=== PATIENT | female | born 1945 | race Caucasian/White ===

== ENCOUNTER 2023-02-12 12:40 | Outpatient (RCR) | payer MEDICARE, OTHER, SELFPAY | END 2023-04-17 16:00 | disposition home or self-care (01) | LOC: HO.WCC 12:40 | PROVIDERS: PCP Student in an Organized Health Care Education/Training Program; Visit Provider Physician Assistant | DX: Z09 Encounter for follow-up examination after completed treatment for conditions other than malignant neoplasm (principal); I89.0 Lymphedema, not elsewhere classified; I87.2 Venous insufficiency (chronic) (peripheral); Z79.899 Other long term (current) drug therapy; Z87.2 Personal history of diseases of the skin and subcutaneous tissue | CPT/HCPCS: 11042; 99212 ==

== ENCOUNTER 2025-02-22 13:31 | Outpatient (AMB) | payer MEDICARE, OTHER, SELFPAY ==
--- NOTE | 2025-02-22 13:37 | A.OFFVIS_ITS ---
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 Consequently, her left femur was fused to the pelvis, contributing to ongoing pain. Despite surgical efforts, no successful hardware reintegration ensued. Her pain is reported to be constant and debilitating at a 10/10 intensity, negatively influencing daily activities, sleep, mood, quality of life and causing substantial apprehension about falls. She has significant leg length discrepancy since hip surgery and cannot get upstairs. Patient receives home health aide service twice daily for care. Patient completed OT and PT therapy through [facility] with minimal improvement. The patient's medical history includes osteonecrosis, osteoporosis, recurrent endometrial cancer, breast cancer, congestive heart failure, and lymphedema of left lower extremity. Functional limitations primarily reside in her ability to ambulate efficiently, necessitating a walker for assistance. The patient utilizes tramadol for pain management but reports diminished efficacy over time, raising concerns about tolerance. Previous cancer treatments and her extensive medical history further compound the complexity of her presenting complaint. - Chronic pain located in the left buttock and side of the left hip. - Described as sore, aching, heavy, sharp, shooting, throbbing, tiring, fearful, heavy. - Severity is constant at 10/10. - Pain onset related to post-surgical changes following total hip arthroplasty with fusion to the pelvis. - Primarily impacts mobility and daily function, engendering fear of falling. - Aggravated by movement and improves slightly with tramadol and Tylenol, though effectiveness has reduced over time. - Non-radiating, occasionally extending to the groin. - Affect: Pain induces fear, particularly regarding falls, and impacts mobility. - Analgesia: Current use of tramadol 50 mg daily, Tylenol, and diclofenac. Pain level remains at 10/10; desired rotation to manageable levels. - Adverse Effects: Tramadol is reported not to cause drowsiness or constipation. - Activities of Daily Living: Pain confining; affects mobility requiring walker assistance and prevents outdoor activities. - Aberrant Drug-Related Behaviors: Potential tolerance to tramadol; notable when she escalated to twice daily intake without medical approval. [facility] Medical History (Updated 02/22/25 @ 21:59 by KATHY Webb) History of endometrial biopsy Hx of bone density study History of mammogram Muscle weakness of upper extremity (~12/2024) Deep venous thrombosis of both lower extremities (~2022) Risk for falls Polyp of colon Neoplasm of breast Aseptic necrosis of bone of hip Osteoporosis (~2012) Lymphedema of lower extremity Hypothyroidism Malignant neoplasm of endometrium of corpus uteri Neoplasm of body of uterus Malignant tumor of breast Surgical History (Updated 02/22/25 @ 21:59 by KATHY Webb) S/P Girdlestone procedure (~02/2023) H/O: hysterectomy History of revision of total replacement of left hip joint (~2022) Hx of colonoscopy History of cancer surgery History of right mastectomy History of operative procedure on hip History of total hip arthroplasty Review of Systems Const Details: - Musculoskeletal: Reports chronic pain in the left hip. - Neurological: Reports no tremor or neurological deficits. - Cardiovascular: Denies heart conditions during anesthetic procedures in the past. - Gastrointestinal: Denies constipation, managed occasional issues with Senokot. - Urinary: Denies incontinence except as a precautionary measure due to reduced mobility. All systems reviewed & are unremarkable except as noted in HPI and below Physical Exam Vital Signs: Last Vital Signs Pulse 80 02/22/25 13:38 BP 110/52 L 02/22/25 13:38 Pulse Ox 97 02/22/25 13:38 Oxygen Delivery Method Room Air 02/22/25 13:38 BMI result Body Mass Index 21.5 General: Appears afebrile. Moderate distress due to pain. Alert and oriented. Mood and affect appropriate. Follows and participates in conversation appropriately. Respiratory effort is unlabored. No cough. Able to transition from sit to stand with assistance. Ambulates with slow, antalgic gait with limping, with the use of walker. Back/Spine/Pelvis Other: Limited lumbar ROM due to pain. Mild TTP to left GTB. Minimal localized tenderness to left SI joint area. Significant tenderness to left lateral hip which extends to left buttock. Well healed scars left hip. Notable leg discrepancy, left shorter than right. Unable to proceed with exam due to significant pain. Cervical Spine: cervical ROM normal, cervical muscular tenderness and No Cervical spine tenderness Thoracic/Lumbar Spine: thoracic and lumbar spine normal to inspection, Lasegue's sign negative, straight leg raise negative bilaterally, thoraco-lumbar ROM limited, No thoracic spinal tenderness and No lumbar spinal tenderness Sacroiliac joints: on the right nontender and on the left tender to palpation Extrem General: Yes no calf tenderness, No clubbing, No cyanosis and Yes pedal edema (nonpitting LLE) Left lower extremity: hip/thigh Details: normal to inspection and tenderness Location: of the hip Location: laterally and posterolaterally; no ecchymosis and no unusual warmth Results Reviewed Results Reviewed: Assessment & Plan Assessment & Plan (1) Chronic pain syndrome: Code(s): G89.4 - Chronic pain syndrome Category: Medical (2) Aseptic necrosis of bone of hip: Code(s): M87.059 - Idiopathic aseptic necrosis of unspecified femur Category: Medical (3) S/P Girdlestone procedure: Onset Date: ~02/2023 Code(s): Z98.890 - Other specified postprocedural states Category: Surgical (4) History of revision of total replacement of left hip joint: Onset Date: ~2022 Code(s): Z96.642 - Presence of left artificial hip joint Category: Surgical Plan Conclusive evaluation and discussion of treatment options highlighted the necessity to adjust the patient's tramadol dosage to twice daily as needed to address chronic pain, alongside integrating Tylenol and diclofenac. Patient reports short acting opioid like tramadol has not been adequate for pain relief. We discussed considering with her PCP to add long-acting opioid such as Belbuca film or Butrans patch for extended relief and are conditional upon electrocardiograph screenings for prolonged QT interval. Should these pharmacologic amendments present inadequate, consideration towards interventional pain management options such as PNS and SCS neurostimulators or intrathecal pumps could follow. Information pamphlets were provided to patient and family today. Patient is hesitant towards injections and ITDD pump, but will look into Curonix PNS trial and implant. Patient is aware initial steps for PNS system would involve to undergo psychological clearance. A coordinated follow-up with her primary care physician will sustain continuity, and she should reconsult if relief remains elusive, facilitating interventional care co-management where indicated. All questions and concerns have been answered and patient agreed with the plan. Follow up as needed. Patient was informed and verbally consented to the use of an ambient scribe for clinic note documentation during this visit. Medications: New 2 naloxone 4 mg/actuation (Narcan) spray 1 dose into ONE nostril; alternate nostrils w each dose until help arrives 4 mg intranasal Q2M PRN 2 ea 0RF opioid overdose G89.4 - Chronic pain syndrome Coding Level of Care Code New Pt Level 4 (80742) Diagnoses Chronic pain syndrome G89.4 Aseptic necrosis of bone of hip M87.059 S/P Girdlestone procedure Z98.890 History of revision of total replacement of left hip joint Z96.642
[2025-02-22 13:38] VITALS: BP 110/52; PULSE 80; O2SAT 97; BMI 21.5
--- OUTSIDE RECORDS SUMMARY | 2025-02-22 15:18 | XMS_ITS | Data Portability ---
Author Organization [facility], Main Office Address [address] [place] [address] Care Team Providers Care Butt Sawyer Name Role Phone NASIM HUDSON Referring Provider FUNMILAYO JOHNSON Surgery Specialist BRIANNA CLAY Medical Oncologist [phone] SELMA GARZA Store Shopper ASHLYN ALAMO Orthopedic Surgeon [phone] MARCO DRIVER Sports Medicine BING ZARAGOZA Orthopedic Surgeon NEIL GUAJARDO Orthopedic Surgeon DENISE BERRIOS Orthopedic Surgeon [phone] TOYIN PEREZ Referring Provider [phone] KEHINDE FERNÁNDEZ Retirement Administrator [phone] SMITA SU Primary Care Provider JHONNY HUDSON Vascular Surgeon SANDIP VEGA Occupational Therapist Assessment Encounter Date Assessment Date Assessment LastModified by Organization Details LastModified Time 02/11/2024 02/11/2024 This service was provided using telemedicine. Patient consented to video & audio visit Patient was located in the [facility]. Provider was located in the office. No other persons participated in the telemedicine visit except for the patient unless otherwise indicated here. Total time of visit was 14 minutes. [email or web address] Not available 02/11/2024 14:36:08 01/15/2025 01/15/2025 This service was provided using telemedicine. Patient consented to video & audio visit Patient was located at home in the [facility]. Provider was located in the office. No other persons participated in the telemedicine visit except for the patient unless otherwise indicated here. daughter Total time of visit was 20 minutes. Not available 01/15/2025 16:30:43 Plan of Treatment Reminders Order Date Submit Date Provider Last Modified By Organization Details Last Modified Time Details Appointments TELEHEALT H15 2024 09:15A Francoise SU MD Not available Not available Not available AWV30 2024 02:15P Francoise SU MD Not available Not available Not available Lab CBC w/ auto diff 2024 025 [facility] (Centralized Electronic Ordering - All Locations), Patient Can Go To The Location Of Their Choice, 12/16/2024 08:07:37 TIBC (total iron-bind ing capacity) , serum 2024 025 [facility] (Centralized Electronic Ordering - All Locations), Patient Can Go To The Location Of Their Choice, 12/16/2024 08:07:37 TSH + free T4, serum 2024 025 [facility] (Centralized Electronic Ordering - All Locations), Patient Can Go To The Location Of Their Choice, 12/16/2024 08:07:36 TIBC (total iron-bind ing capacity) , serum 2023 024 [facility] (Centralized Electronic Ordering - All Locations), Patient Can Go To The Location Of Their Choice, 08/12/2024 10:06:27 ferritin, serum or plasma 2023 024 [facility] ([facility]ized Electronic Ordering - All Locations), Patient Can Go To The Location Of Their Choice, 08/12/2024 10:06:30 CBC w/ auto diff 2023 024 [facility] (Centralized Electronic Ordering - All Locations), Patient Can Go To The Location Of Their Choice, 08/12/2024 10:06:26 vitamin B12 + folate, serum or blood 2023 024 [facility] (Centralized Electronic Ordering - All Locations), Patient Can Go To The Location Of Their Choice, 08/12/2024 10:06:28 vitamin D, 25-hydrox y, total, serum 2023 024 [facility] (Centralized Electronic Ordering - All Locations), Patient Can Go To The Location Of Their Choice, 08/12/2024 10:06:29 TSH + free T4, serum 2023 024 [facility] (Centralized Electronic Ordering - All Locations), Patient Can Go To The Location Of Their Choice, 08/12/2024 10:06:25 lipid panel, serum 2023 024 [facility], [address], [place], [address], 03/03/2024 08:08:20 BMP, serum or plasma 2023 024 [facility], [address], [place], [address], 03/03/2024 08:08:19 CBC w/ auto diff 2023 024 [facility], [address], [place], [address], 03/03/2024 08:08:18 TIBC (total iron-bind ing capacity) , serum 2023 024 [facility] (Centralized Electronic Ordering - All Locations), Patient Can Go To The Location Of Their Choice, 03/03/2024 08:08:20 ferritin, serum or plasma 2023 024 [facility] (Centralized Electronic Ordering - All Locations), Patient Can Go To The Location Of Their Choice, 03/03/2024 08:08:22 TSH, ultra-sen sitive, serum 2023 024 [facility], [address], [place], [address], 03/03/2024 08:08:21 Referral [facility] referral - for considera tion of home physical therapy, pt is home bound and has trouble getting up from seating position even with walker 2024 025 teri Not available 12/15/2024 14:57:05 home health referral - pt has hx of left sided hip pain, needs assistanc e with dressing and washing. One to two hours daily for 5 days a week. 2023 024 CELSO Not available 01/04/2025 09:00:38 Procedures None recorded. Surgeries None recorded. Imaging None recorded. Medication Orders tramadol 50 mg tablet 2024 025 [facility]acy #[id number], [address] [place] [address], [id number], 01/15/2025 16:36:27 lorazepam 0.5 mg tablet 2024 025 [facility] #[id number], [address] [place] [address], [address], 01/15/2025 16:36:27 tramadol 50 mg tablet 2024 025 [facility] #[id number], [address] [place] [address], [id number], 12/15/2024 14:30:55 ferrous sulfate 325 mg (65 mg iron) tablet 2023 024 [facility]/Pharmacy #0957, [address] [place] [address], [id number], 12/14/2024 07:48:24 cyclobenz aprine 5 mg tablet 2023 024 [email or web address] [facility] #0957, [address] [place] [address], [address], 01/29/2025 15:17:52 Patient TargetsNo targets recorded. Patient Instructions Encounter Date Encounter Id Patient Instructions Last Modified By Organization Details Last Modified Time 02/11/2024 [id number] At [facility] follow up visit, all current and discharge medications (OTC, herbal therapies, supplements) reviewed and reconciled with patient and or caregiver, including potential side effects, drug interactions, instructions, and the consequences of not taking medication. Reviewed potential barriers to medication adherence, such as side effects from medication or cost of medication. [email or web address] Not available 02/11/2024 13:28:21 03/02/2024 [id number] advance care planning: care instructions Not available 03/02/2024 10:48:26 osteoporosis: care instructions Not available 03/02/2024 10:48:27 well visit, over 65: care instructions Not available 03/02/2024 10:48:26 preventing falls: care instructions Not available 03/02/2024 10:48:27 hypothyroidism: care instructions Not available 03/02/2024 10:48:26 08/11/2024 [id number] osteoporosis: care instructions Not available 08/11/2024 11:48:14 hypothyroidism: care instructions Not available 08/11/2024 11:48:14 12/15/2024 [id number] hypothyroidism: care instructions Not available 12/15/2024 14:30:53 01/15/2025 [id number] grief (actual/anticipa ko): care instructions Not available 01/15/2025 16:36:24 Reason for Referral Home Health Referral for Gabe n of left hip joint pt has hx of left sided hip pain, needs assistance with dressing and washing. One to two hours daily for 5 days a week. Referring Physician: Smita Su Family Medicine, Encounter Date: 08/11/2024 Half-Way Referral for At increased risk for falls for consideration of home physical therapy, pt is home bound and has trouble getting up from seating position even with walker Referring Physician: Smita Su Family [facility], Encounter Date: 12/15/2024 Results Created Date Observation Date Name Description Value Unit Range Abnormal Flag Note LastModifiedBy Organization Detail LastModifiedTime 03/02/20 24 03/02/2024 CBC WITH DIFFE RENTI AL/PL ATELE T WBC 9.2 x10e3 /uL 3.4-10 .8 Not Available [facility] ([facility]) [address], [place], [address], 03/03/2024 08:08:18 03/02/20 24 03/02/2024 CBC WITH DIFFE RENTI AL/PL ATELE T RBC 3.78 x10e6 /uL 3.77-5 .28 Not Available [facility] ([facility]) [address], [place], [address], 03/03/2024 08:08:18 03/02/20 24 03/02/2024 CBC WITH DIFFE RENTI AL/PL ATELE T hemoglobin 11.4 g/dL 11.1-1 5.9 Not Available [facility] ([facility]) [address], [place], [address], 03/03/2024 08:08:18 03/02/20 24 03/02/2024 CBC WITH DIFFE RENTI AL/PL ATELE T hematocrit 36.2 % 34.0-4 6.6 Not Available [facility] ([facility]) [address] [place], [address], 03/03/2024 08:08:18 03/02/20 24 03/02/2024 CBC WITH DIFFE RENTI AL/PL ATELE T MCV 96 fL 79-97 Not Available [facility] ([facility]) [address] [place], [address], 03/03/2024 08:08:18 03/02/20 24 03/02/2024 CBC WITH DIFFE RENTI AL/PL ATELE T MCH 30.2 pg 26.6-3 3.0 Not Available [facility] ([facility]) [address] [place], [address], 03/03/2024 08:08:18 03/02/20 24 03/02/2024 CBC WITH DIFFE RENTI AL/PL ATELE T MCHC 31.5 g/dL 31.5-3 5.7 Not Available [facility] ([facility]) [address], [place], [address], 03/03/2024 08:08:18 03/02/20 24 03/02/2024 CBC WITH DIFFE RENTI AL/PL ATELE T RDW 12.8 % 11.7-1 5.4 Not Available [facility] ([facility]) [address], [place], [address], 03/03/2024 08:08:18 03/02/20 24 03/02/2024 CBC WITH DIFFE RENTI AL/PL ATELE T platelets 422 x10e3 /uL 150-45 0 Not Available [facility] ([facility]) [address], [place], [address], 03/03/2024 08:08:18 03/02/20 24 03/02/2024 CBC WITH DIFFE RENTI AL/PL ATELE T neutrophils 80 % not estab. Not Available [facility] ([facility]) [address], [place], [address], 03/03/2024 08:08:18 03/02/20 24 03/02/2024 CBC WITH DIFFE RENTI AL/PL ATELE T lymphs 10 % not estab. Not Available [facility] ([facility]) [address], [place], [address], 03/03/2024 08:08:18 03/02/20 24 03/02/2024 CBC WITH DIFFE RENTI AL/PL ATELE T monocytes 8 % not estab. Not Available [facility] ([facility]) [address], [place], [address], 03/03/2024 08:08:18 03/02/20 24 03/02/2024 CBC WITH DIFFE RENTI AL/PL ATELE T eos 1 % not estab. Not Available [facility] ([facility]) [address] [place], [address], 03/03/2024 08:08:18 03/02/20 24 03/02/2024 CBC WITH DIFFE RENTI AL/PL ATELE T basos 0 % not estab. Not Available [facility] ([facility]) [address], [place], [address], 03/03/2024 08:08:18 03/02/20 24 03/02/2024 CBC WITH DIFFE RENTI AL/PL ATELE T immature cells WHITING MACHINE OPERATOR Not Available [facility] ([facility]) [address] [place], [address], 03/03/2024 08:08:18 03/02/20 24 03/02/2024 CBC WITH DIFFE RENTI AL/PL ATELE T neutrophils (absolute) 7.4 x10e3 /uL 1.4-7. 0 above high normal Not Available [facility] ([facility]) [address] [place], [address], 03/03/2024 08:08:18 03/02/20 24 03/02/2024 CBC WITH DIFFE RENTI AL/PL ATELE T lymphs (absolute) 0.9 x10e3 /uL 0.7-3. 1 Not Available [facility] ([facility]) [address] [place], [address], 03/03/2024 08:08:18 03/02/20 24 03/02/2024 CBC WITH DIFFE RENTI AL/PL ATELE T monocytes(ab solute) 0.7 x10e3 /uL 0.1-0. 9 Not Available [facility] ([facility]) [address] [place], [address], 03/03/2024 08:08:18 03/02/20 24 03/02/2024 CBC WITH DIFFE RENTI AL/PL ATELE T eos (absolute) 0.1 x10e3 /uL 0.0-0. 4 Not Available [facility] ([facility]) [address], [place], [address], 03/03/2024 08:08:18 03/02/20 24 03/02/2024 CBC WITH DIFFE RENTI AL/PL ATELE T baso (absolute) 0.0 x10e3 /uL 0.0-0. 2 Not Available [facility] ([facility]) [address], [place], [address], 03/03/2024 08:08:18 03/02/20 24 03/02/2024 CBC WITH DIFFE RENTI AL/PL ATELE T immature granulocytes 1 % not estab. Not Available [facility] ([facility]) [address], [place], [address], 03/03/2024 08:08:18 03/02/20 24 03/02/2024 CBC WITH DIFFE RENTI AL/PL ATELE T immature grans (abs) 0.1 x10e3 /uL 0.0-0. 1 Not Available [facility] ([facility]) [address], [place], [address], 03/03/2024 08:08:18 03/02/20 24 03/02/2024 CBC WITH DIFFE RENTI AL/PL ATELE T NRBC WHITING MACHINE OPERATOR Not Available [facility] ([facility]) [address] [place], [address], 03/03/2024 08:08:18 03/02/20 24 03/02/2024 CBC WITH DIFFE RENTI AL/PL ATELE T hematology comments: WHITING MACHINE OPERATOR Not Available [facility] ([facility]) [address], [place], [address], 03/03/2024 08:08:18 03/02/20 24 03/02/2024 BASIC METAB OLIC PANEL (8) glucose 95 mg/dL 70-99 Not Available [facility] ([facility]) [address] [place], [address], 03/03/2024 08:08:19 03/02/20 24 03/02/2024 BASIC METAB OLIC PANEL (8) BUN 18 mg/dL 8-27 Not Available [facility] ([facility]) [address], [address], 03/03/2024 08:08:19 03/02/20 24 03/02/2024 BASIC METAB OLIC PANEL (8) creatinine 0.72 mg/dL 0.57-1 .00 Not Available [facility] ([facility]) [address] [place], [address], 03/03/2024 08:08:19 03/02/20 24 03/02/2024 BASIC METAB OLIC PANEL (8) eGFR 86 mL/mi n/1.7 3 >59 Not Available [facility] ([facility]) [address] [place], [address], 03/03/2024 08:08:19 03/02/20 24 03/02/2024 BASIC METAB OLIC PANEL (8) BUN/creatini ne ratio 25 12-28 Not Available [facility] ([facility]) [address] [place], [address], 03/03/2024 08:08:19 03/02/20 24 03/02/2024 BASIC METAB OLIC PANEL (8) sodium 138 mmol/ L 134-14 4 Not Available [facility] ([facility]) [address] [place], [address], 03/03/2024 08:08:19 03/02/20 24 03/02/2024 BASIC METAB OLIC PANEL (8) potassium 5.0 mmol/ L 3.5-5. 2 Not Available [facility] ([facility]) [address] [place], [address], 03/03/2024 08:08:19 03/02/20 24 03/02/2024 BASIC METAB OLIC PANEL (8) chloride 99 mmol/ L 96-106 Not Available [facility] ([facility]) [address] [place], [address], 03/03/2024 08:08:19 03/02/20 24 03/02/2024 BASIC METAB OLIC PANEL (8) carbon dioxide, total 25 mmol/ L 20-29 Not Available [facility] ([facility]) [address] [place], [address], 03/03/2024 08:08:19 03/02/20 24 03/02/2024 BASIC METAB OLIC PANEL (8) calcium 9.8 mg/dL 8.7-10 .3 Not Available [facility] ([facility]) [address] [place], [address], 03/03/2024 08:08:19 03/02/20 24 03/02/2024 LIPID PANEL cholesterol, total 133 mg/dL 100-19 9 Not Available [facility] ([facility]) [address] [place], [address], 03/03/2024 08:08:20 03/02/20 24 03/02/2024 LIPID PANEL triglyceride s 73 mg/dL 0-149 Not Available [facility] ([facility]) [address] [place], [address], 03/03/2024 08:08:20 03/02/20 24 03/02/2024 LIPID PANEL HDL cholesterol 44 mg/dL >39 Not Available [facility] ([facility]) [address] [place], [address], 03/03/2024 08:08:20 03/02/20 24 03/02/2024 LIPID PANEL VLDL cholesterol rayshawn 15 mg/dL 5-40 Not Available [facility] ([facility]) [address] [place], [address], 03/03/2024 08:08:20 03/02/20 24 03/02/2024 LIPID PANEL LDL chol calc ([facility]) 74 mg/dL 0-99 Not Available [facility] ([facility]) [address] [place], [address], 03/03/2024 08:08:20 03/02/20 24 03/02/2024 LIPID PANEL LDL calc comment: WHITING MACHINE OPERATOR Not Available [facility] ([facility]) [address] [place], [address], 03/03/2024 08:08:20 03/02/20 24 03/03/2024 IRON AND TIBC iron bind.cap.(TI BC) 269 ug/dL 250-45 0 Not Available [facility] ([facility]) [address] [place], [address], 03/03/2024 08:08:20 03/02/20 24 03/03/2024 IRON AND TIBC UIBC 207 ug/dL 118-36 9 Not Available [facility] ([facility]) [address] [place], [address], 03/03/2024 08:08:20 03/02/20 24 03/03/2024 IRON AND TIBC iron 62 ug/dL 27-139 Not Available [facility] ([facility]) [address] [place], [address], 03/03/2024 08:08:20 03/02/20 24 03/03/2024 IRON AND TIBC iron saturation 23 % 15-55 Not Available [facility] ([facility]) [address] [place], [address], 03/03/2024 08:08:20 03/02/20 24 03/03/2024 TSH RFX ON ABNOR MAL TO FREE T4 TSH 8.090 uIU/m L 0.450- 4.500 above high normal Not Available [facility] ([facility]) [address] [place], [address], 03/03/2024 08:08:21 03/02/20 24 03/03/2024 TSH RFX ON ABNOR MAL TO FREE T4 T4,free (direct) 1.34 NG/dL 0.82-1 .77 Not Available [facility] ([facility]) [address] [place], [address], 03/03/2024 08:08:21 03/02/20 24 03/03/2024 MAMIE TIN ferritin 155 NG/mL 15-150 above high normal Not Available [facility] ([facility]) [address] [place], [address], 03/03/2024 08:08:21 08/11/20 24 08/12/2024 TSH+F REE T4 TSH 0.236 uIU/m L 0.450- 4.500 below low normal Not Available [facility] ([facility]) [address] [place], [address], 08/12/2024 10:06:25 08/11/20 24 08/12/2024 TSH+F REE T4 T4,free(dire ct) 2.09 NG/dL 0.82-1 .77 above high normal Not Available [facility] ([facility]) [address] [place], [address], 08/12/2024 10:06:25 08/11/20 24 08/11/2024 CBC WITH DIFFE RENTI AL/PL ATELE T WBC 7.9 x10e3 /uL 3.4-10 .8 normal Eff ectiv e Decem latisha 2023 [place] [id number] 5 WBC will be made* * non-o rdera ble as a stand -jerod e order code. Not Available [facility] ([facility]) [address] [place], [address], 08/12/2024 10:06:26 08/11/20 24 08/11/2024 CBC WITH DIFFE RENTI AL/PL ATELE T RBC 4.25 x10e6 /uL 3.77-5 .28 normal Not Available [facility] ([facility]) [address], [place], [address], 08/12/2024 10:06:26 08/11/20 24 08/11/2024 CBC WITH DIFFE RENTI AL/PL ATELE T hemoglobin 12.8 g/dL 11.1-1 5.9 normal Not Available [facility] ([facility]) [address], [place], [address], 08/12/2024 10:06:26 08/11/20 24 08/11/2024 CBC WITH DIFFE RENTI AL/PL ATELE T hematocrit 39.2 % 34.0-4 6.6 normal Not Available [facility] ([facility]) [address], [place], [address], 08/12/2024 10:06:26 08/11/20 24 08/11/2024 CBC WITH DIFFE RENTI AL/PL ATELE T MCV 92 fL 79-97 normal Not Available [facility] ([facility]) [address] [place], [address], 08/12/2024 10:06:26 08/11/20 24 08/11/2024 CBC WITH DIFFE RENTI AL/PL ATELE T MCH 30.1 pg 26.6-3 3.0 normal Not Available [facility] ([facility]) [address] [place], [address], 08/12/2024 10:06:26 08/11/20 24 08/11/2024 CBC WITH DIFFE RENTI AL/PL ATELE T MCHC 32.7 g/dL 31.5-3 5.7 normal Not Available [facility] ([facility]) [address] [place], [address], 08/12/2024 10:06:26 08/11/20 24 08/11/2024 CBC WITH DIFFE RENTI AL/PL ATELE T RDW 13.3 % 11.7-1 5.4 Not Available [facility] ([facility]) [address], [place], [address], 08/12/2024 10:06:26 08/11/20 24 08/11/2024 CBC WITH DIFFE RENTI AL/PL ATELE T platelets 413 x10e3 /uL 150-45 0 normal Not Available [facility] ([facility]) [address], [place], [address], 08/12/2024 10:06:26 08/11/20 24 08/11/2024 CBC WITH DIFFE RENTI AL/PL ATELE T neutrophils 70 % not estab. normal Not Available [facility] ([facility]) [address], [place], [address], 08/12/2024 10:06:26 08/11/20 24 08/11/2024 CBC WITH DIFFE RENTI AL/PL ATELE T lymphs 17 % not estab. normal Not Available [facility] ([facility]) [address], [place], [address], 08/12/2024 10:06:26 08/11/20 24 08/11/2024 CBC WITH DIFFE RENTI AL/PL ATELE T monocytes 9 % not estab. normal Not Available [facility] ([facility]) [address], [place], [address], 08/12/2024 10:06:26 08/11/20 24 08/11/2024 CBC WITH DIFFE RENTI AL/PL ATELE T eos 3 % not estab. normal Not Available [facility] ([facility]) [address] [place], [address], 08/12/2024 10:06:26 08/11/20 24 08/11/2024 CBC WITH DIFFE RENTI AL/PL ATELE T basos 1 % not estab. normal Not Available [facility] ([facility]) [address] [place], [address], 08/12/2024 10:06:26 08/11/20 24 08/11/2024 CBC WITH DIFFE RENTI AL/PL ATELE T immature cells WHITING MACHINE OPERATOR Not Available [facility] ([facility]) [address] [place], [address], 08/12/2024 10:06:26 08/11/20 24 08/11/2024 CBC WITH DIFFE RENTI AL/PL ATELE T neutrophils (absolute) 5.5 x10e3 /uL 1.4-7. 0 normal Not Available [facility] ([facility]) [address] [place], [address], 08/12/2024 10:06:26 08/11/20 24 08/11/2024 CBC WITH DIFFE RENTI AL/PL ATELE T lymphs (absolute) 1.4 x10e3 /uL 0.7-3. 1 normal Not Available [facility] ([facility]) [address] [place], [address], 08/12/2024 10:06:26 08/11/20 24 08/11/2024 CBC WITH DIFFE RENTI AL/PL ATELE T monocytes(ab solute) 0.7 x10e3 /uL 0.1-0. 9 normal Not Available [facility] ([facility]) [address] [place], [address], 08/12/2024 10:06:26 08/11/20 24 08/11/2024 CBC WITH DIFFE RENTI AL/PL ATELE T eos (absolute) 0.3 x10e3 /uL 0.0-0. 4 normal Not Available [facility] ([facility]) [address] [place], [address], 08/12/2024 10:06:26 08/11/20 24 08/11/2024 CBC WITH DIFFE RENTI AL/PL ATELE T baso (absolute) 0.1 x10e3 /uL 0.0-0. 2 normal Not Available [facility] ([facility]) [address], [place], [address], 08/12/2024 10:06:26 08/11/20 24 08/11/2024 CBC WITH DIFFE RENTI AL/PL ATELE T immature granulocytes 0 % not estab. Not Available [facility] ([facility]) [address], [place], [address], 08/12/2024 10:06:26 08/11/20 24 08/11/2024 CBC WITH DIFFE RENTI AL/PL ATELE T immature grans (abs) 0.0 x10e3 /uL 0.0-0. 1 Not Available [facility] ([facility]) [address], [place], [address], 08/12/2024 10:06:26 08/11/20 24 08/11/2024 CBC WITH DIFFE RENTI AL/PL ATELE T NRBC WHITING MACHINE OPERATOR Not Available [facility] ([facility]) [address], [place], [address], 08/12/2024 10:06:26 08/11/20 24 08/11/2024 CBC WITH DIFFE RENTI AL/PL ATELE T hematology comments: WHITING MACHINE OPERATOR Not Available [facility] ([facility]) [address] [place], [address], 08/12/2024 10:06:26 08/11/20 24 08/12/2024 IRON AND TIBC iron bind.cap.(TI BC) 264 ug/dL 250-45 0 normal Not Available [facility] ([facility]) [address] [place], [address], 08/12/2024 10:06:27 08/11/20 24 08/12/2024 IRON AND TIBC UIBC 139 ug/dL 118-36 9 normal Not Available [facility] ([facility]) [address] [place], [address], 08/12/2024 10:06:27 08/11/20 24 08/12/2024 IRON AND TIBC iron 125 ug/dL 27-139 normal Not Available [facility] ([facility]) [address] [facility] [address], [place], [address], 08/12/2024 10:06:27 08/11/20 24 08/12/2024 IRON AND TIBC iron saturation 47 % 15-55 normal Not Available [facility] ([facility]) [address] [facility] [address], [place], [address], 08/12/2024 10:06:27 08/11/20 24 08/12/2024 VITAM IN B12 AND FOLAT E vitamin B12 268 pg/mL 232-12 45 normal Not Available [facility] ([facility]) [address] [facility], [place], [address], 08/12/2024 10:06:28 08/11/20 24 08/12/2024 VITAM IN B12 AND FOLAT E folate (folic acid), serum 9.2 NG/mL >3.0 normal A serum folat e heidi ntrat ion of less than 3.1 ng/mL is consi dered to repre sent clini rayshawn defic iency . Not Available [facility] ([facility]) [address], [place], [address], 08/12/2024 10:06:28 08/11/20 24 08/12/2024 VITAM IN D, 25-HY DROXY vitamin D, 25-hydroxy 29.5 NG/mL 30.0-1 00.0 below low normal Vitam in D defic iency has been defin ed by the Insti tute of Medic ine and an Endoc rine Socie ty pract ice guide line as a level of serum 25-OH vitam in D less than 20 ng/mL (1,2) . The Endoc rine Socie ty went on to [facility] er defin e vitam in D insuf ficie ncy as a level betwe en 21 and 29 ng/mL (2). 1. IOM (Inst itute of Medic ine). 2010. Dieta ry refer ence jessica es for calci um and D. Charlene love [place]: [facility] . 2. Kam seaman MF, Binjacob kapoor [place], Bisch off-F errar i HYMAN, et al. Evalu ation , treat ment, and preve ntion of vitam in D defic iency : an Endoc rine Socie ty clini rayshawn pract ice guide line. JCEM. 2010; 96(7) :1911 -30. Not Available [facility] ([facility]) [address] [place], [address], 08/12/2024 10:06:29 08/11/20 24 08/12/2024 MAMIE TIN ferritin 187 NG/mL 15-150 above high normal Not Available [facility] ([facility]) [address] [place], [address], 08/12/2024 10:06:30 12/16/19 25 12/16/2024 TSH+F REE T4 TSH 0.944 uIU/m L 0.450- 4.500 normal Not Available [facility] ([facility]) [address] [place], [address], 12/16/2024 08:07:36 12/16/19 25 12/16/2024 TSH+F REE T4 T4,free(dire ct) 1.66 NG/dL 0.82-1 .77 normal Not Available [facility] ([facility]) [address] [place], [address], 12/16/2024 08:07:36 12/16/19 25 12/16/2024 CBC WITH DIFFE RENTI AL/PL ATELE T WBC 11.4 x10e3 /uL 3.4-10 .8 above high normal Not Available [facility] ([facility]) [address] [place], [address], 12/16/2024 08:07:37 12/16/19 25 12/16/2024 CBC WITH DIFFE RENTI AL/PL ATELE T RBC 3.99 x10e6 /uL 3.77-5 .28 normal Not Available [facility] ([facility]) [address] [place], [address], 12/16/2024 08:07:37 12/16/19 25 12/16/2024 CBC WITH DIFFE RENTI AL/PL ATELE T hemoglobin 12.5 g/dL 11.1-1 5.9 normal Not Available [facility] ([facility]) [address] [place], [address], 12/16/2024 08:07:37 12/16/19 25 12/16/2024 CBC WITH DIFFE RENTI AL/PL ATELE T hematocrit 38.0 % 34.0-4 6.6 normal Not Available [facility] ([facility]) [address] [place], [address], 12/16/2024 08:07:37 12/16/19 25 12/16/2024 CBC WITH DIFFE RENTI AL/PL ATELE T MCV 95 fL 79-97 normal Not Available [facility] ([facility]) [address] [place], [address], 12/16/2024 08:07:37 12/16/19 25 12/16/2024 CBC WITH DIFFE RENTI AL/PL ATELE T MCH 31.3 pg 26.6-3 3.0 normal Not Available [facility] ([facility]) [address] [place], [address], 12/16/2024 08:07:37 12/16/19 25 12/16/2024 CBC WITH DIFFE RENTI AL/PL ATELE T MCHC 32.9 g/dL 31.5-3 5.7 normal Not Available [facility] ([facility]) [address] [place], [address], 12/16/2024 08:07:37 12/16/19 25 12/16/2024 CBC WITH DIFFE RENTI AL/PL ATELE T RDW 14.5 % 11.7-1 5.4 Not Available [facility] ([facility]) [address] [facility], [place], [address], 12/16/2024 08:07:37 12/16/19 25 12/16/2024 CBC WITH DIFFE RENTI AL/PL ATELE T platelets 478 x10e3 /uL 150-45 0 above high normal Not Available [facility] ([facility]) [address] [facility], [place], [address], 12/16/2024 08:07:37 12/16/19 25 12/16/2024 CBC WITH DIFFE RENTI AL/PL ATELE T neutrophils 76 % not estab. normal Not Available [facility] ([facility]) [address] [facility], [place], [address], 12/16/2024 08:07:37 12/16/19 25 12/16/2024 CBC WITH DIFFE RENTI AL/PL ATELE T lymphs 14 % not estab. normal Not Available [facility] ([facility]) [address] [facility], [place], [address], 12/16/2024 08:07:37 12/16/19 25 12/16/2024 CBC WITH DIFFE RENTI AL/PL ATELE T monocytes 8 % not estab. normal Not Available [facility] ([facility]) [address] [facility], [place], [address], 12/16/2024 08:07:37 12/16/19 25 12/16/2024 CBC WITH DIFFE RENTI AL/PL ATELE T eos 2 % not estab. normal Not Available [facility] ([facility]) [address] [facility], [place], [address], 12/16/2024 08:07:37 12/16/19 25 12/16/2024 CBC WITH DIFFE RENTI AL/PL ATELE T basos 0 % not estab. 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 0 above high normal Not Available [facility] ([facility]) [address] [place], [address], 12/16/2024 08:07:37 12/16/19 25 12/16/2024 CBC WITH DIFFE RENTI AL/PL ATELE T lymphs (absolute) 1.6 x10e3 /uL 0.7-3. 1 normal Not Available [facility] ([facility]) [address] [place], [address], 12/16/2024 08:07:37 12/16/19 25 12/16/2024 CBC WITH DIFFE RENTI AL/PL ATELE T monocytes(ab solute) 1.0 x10e3 /uL 0.1-0. 9 above high normal Not Available [facility] ([facility]) [address] [place], [address], 12/16/2024 08:07:37 12/16/19 25 12/16/2024 CBC WITH DIFFE RENTI AL/PL ATELE T eos (absolute) 0.2 x10e3 /uL 0.0-0. 4 normal Not Available [facility] ([facility]) [address] [place], [address], 12/16/2024 08:07:37 04/01/20 25 12/16/2024 CBC WITH DIFFE RENTI AL/PL ATELE T baso (absolute) 0.1 x10e3 /uL 0.0-0. 2 normal Not Available [facility] ([facility]) [address] [facility], [place], [address], 12/16/2024 08:07:37 12/16/19 25 12/16/2024 CBC WITH DIFFE RENTI AL/PL ATELE T immature granulocytes 0 % not estab. Not Available [facility] ([facility]) [address], [place], [address], 12/16/2024 08:07:37 12/16/19 25 12/16/2024 CBC WITH DIFFE RENTI AL/PL ATELE T immature grans (abs) 0.0 x10e3 /uL 0.0-0. 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 Not Available [facility] ([facility]) [address], [place], [address], 12/16/2024 08:07:37 12/16/19 25 12/16/2024 IRON AND TIBC iron bind.cap.(TI BC) 285 ug/dL 250-45 0 normal Not Available [facility] ([facility]) [address] [facility], [place], [address], 12/16/2024 08:07:37 12/16/19 25 12/16/2024 IRON AND TIBC UIBC 191 ug/dL 118-36 9 normal Not Available [facility] ([facility]) [address], [place], [address], 12/16/2024 08:07:37 12/16/19 25 12/16/2024 IRON AND TIBC iron 94 ug/dL 27-139 normal Not Available [facility] ([facility]) [address], [place], [address], 12/16/2024 08:07:37 12/16/1912/16/2024 IRON AND TIBC iron saturation 33 % 15-55 normal Not Available [facility] ([facility]) [address], [place], [address], 12/16/2024 08:07:37 Result Notes None recorded. Problems Name Problem SNOMED Code Status Onset Date Resolution Date Notes Provider Name and Address Organization Details Recorded Time Blood chemistr y outside referenc e range 520451013 Completed 201303/30/2014 [facility]; RECORDED 09/24/19 14 2:46PM BY PRINCESS LOMBARDI MA, ANNOTATI ON/ADDEN DUM Koki Aranda PA-C [address], [place], [address] , [facility] [place] 6 09:49:26 Tobacco user [id number] Completed 10/11/2016 Kymberly da silva, [facility] 7 09:19:40 History of clinical finding in subject [id number] Completed 201311/16/2014 RECORDED 11/20/19 14 12:48PM BY BIJU CALVIN MA, OFFICE VISIT Koki Aranda PA-C [address], [place], [address] , [facility] [place] 6 09:49:26 Patient status finding [id number] Completed 201303/30/2014 RECORDED 10/02/19 14 8:38AM BY MING MEZA MA, ANNOTATI ON/ADDEN DUM Koki Manoj PITTMAN-C [address], [place], [address] , [facility] 6 09:49:26 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 55482967 Completed 10/14/2017 Kymberly Hilton chandlero null, [facility] 8 11:05:39 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 73918161 Completed 201303/30/2014 RECORDED 09/24/19 14 2:46PM BY PRINCESS LOMBARDI MA, ANNOTATI ON/ADDEN DUM Kymberly Hilton [facility], [facility] 8 11:05:39 Screenin g for malignan t neoplasm of breast Completed 201203/30/2014 RECORDED 10/01/19 13 8:53AM BY ELLEN CARR I, FRANKLINATI ON/ADDEN DUM Koki GARCIAC [address], [place], [address] , [facility] 6 09:49:26 Disorder of lower limb 132929138 Completed 201203/30/2014 RECORDED 10/01/19 13 8:53AM BY FRANKLIN RICHARDSATI ON/ADDEN DUM Koki GARCIAC [address], [place], [address] , [facility] 6 09:49:26 Impacted cerumen 73694021 Completed 201311/16/2014 IMPRESSI ON: MANUAL DYSIMPAC TION WITH CURETTE ATTEMPTE D UNSUCCES SFULLY. MATERIAL QUITE ADHERENT TO THE SUPERIOR ASPECT OF THE EAR CANAL, MINOR BLEEDING RESULTED . WILL PROVIDE DROPS TO MINIZINE DISCOMFO RT AND RISK OF INFECTIO N. REFER TO ENT FOR MORE DEFINITI VE REMOVAL. ; RECORDED 11/20/19 14 1:42PM BY ADONIS Bond MD, OFFICE VISIT Koki Aranda PA-C [address], [place], [address] , [facility] 6 09:49:26 Screenin g for malignan t neoplasm of cervix Completed 201203/30/2014 RECORDED 10/01/19 13 8:53AM BY FRANKLIN RICHARDSATI ON/ADDEN DUM Koki Manoj GARCIAC [address], [place], [address] , [facility] 6 09:49:26 Clostrid ioides difficil e infectio n 750503997 Completed 201203/30/2014 IMPRESSI ON: PT WITH ONGOING LOOSE STOOLS, FREQ, ABDO CRAMPING X WEEKS FOLLOWIN G MULTIPLE ROUNDS OF ABX TX. + C. DIFF 11/04. STARTED ON FLAGYL, CURRENTL Y DAY # 8. SXS NOT YET RESOLVED BUT IMPROVED . WILL EXTEND TO 14 DAY COURSE, CONTINUE PROBIOTI C AND QUESTRAN . WILL TOUCH BASE NEXT Y TO SEE HOW SHE IS FEELING. IF STILL SX CONSIDER PO VACO COURSE.; RECORDED 12/26/19 13 9:21AM BY MING MEZA MA, MYNOR ON/ADDEN DUM Koki Aranda PA-C [address] [facility], [place], [address] , [facility] 6 09:49:25 Screenin g for malignan t neoplasm of colon Completed 201303/30/2014 RECORDED 10/02/19 14 8:38AM BY MING MEZA MA, ANNOTATI ON/ADDEN DUM Koki GARCIAC [address] [facility] [facility], [place], [address] , [facility] 6 09:49:26 Diarrhea 05285596 Completed 201303/30/2014 IMPRESSI ON: PT WITH ONGOING FREQ STOOLS SINCE OCT, SOME DIARRHEA L, ABDOMINA L PAINS AND CRAMPING , FEW EPISODES OF VOMITING . DID HAVE + TEST FOR C DIFF IN OCT, TXED WITH FLAGYL X 14 DAYS WITH WHAT SEEMED TO INITIALL Y BE IMPROVEM ENT IN HER SXS. PAST TWO WEEKS BACK TO WHERE SHE WAS IN OCT THOUGH. NO FURTHER ABX TX SINCE. DISCUSSMargarette Castano WITH PCP, ALSO CONTACTMargarette JACKMAN DIRECTLY AND SPOKE WITH NOLAN ENOC. SHE REC THAT WE START PO VANCO OUTLINED , RETEST AND HAVE PT F/U WITH THEM. PT AWARE OF PLAN, WE WILL ARRANGE APPT WITH THEM FOR HER. CONTINUE DAILY PROBIOTI C.; RECORDED 10/02/19 14 8:38AM BY MING MEZA MA, MYNOR ON/ADDEN DUM Koki Aranda PA-C [address], [place], [address] , [facility] 6 09:49:26 Disorder of bone and articula r cartilag e 575596020 Completed 201203/30/2014 RECORDED 10/01/19 13 8:53AM BY MYNOR RICHARDS ON/ADDEN DUM Kymberly da silva [facility] 7 09:19:51 Malignan t neoplasm of corpus uteri, excludin g isthmus 846851226 Completed 10/14/2017 Kymberly da silva [facility] 8 11:06:15 Malaise and fatigue 806674452 Completed 10/11/2016 Kymberly da silva [facility] 7 09:19:55 Influenz a vaccine needed 71544075176 06 Completed 201203/30/2014 RECORDED 06/20/20 13 9:03AM BY BIJU CALVIN MA, NURSE VISIT Koki Aranda PA-C [address], [place], [address] , [facility] 6 09:49:26 Adult health examinat ion Completed 201303/30/2014 IMPRESSI ON: PT IS DOING WELL, UTD ON MAMMOGRA M, COLONOSP CY ADN CASH REGISTER BALANCER EXAM, HX OF BREAST AND UTERINE CANCER, FOLLOWED CLOSELY. ON VITS AND VIT D; RECORDED 12/24/19 14 10:16AM BY MYNOR MARCOS ON/ADDEN DUM Koki GARCIAC [address], [place], [address] , [facility] 6 09:49:26 History of malignan t neoplasm of breast 153820099 Completed 201303/30/2014 IMPRESSI ON: [place] IN 2002 WITH CHEMO, RADIATIO N AND MASTECTO MY; RECORDED 10/02/19 14 8:38AM BY MING MEZA MA, MYNOR ON/ADDEN DUM Koki GARCIAC [address], [place], [address] , [facility] 6 09:49:26 Follow-u p encounte r Completed 201203/30/2014 RECORDED 10/01/19 13 8:53AM BY MYNOR RICHARDS ON/ADDEN DUM Koki GARCIAC [address], [place], [address] , [facility] 6 09:49:26 Pure hypercho lesterol emia 596272456 Completed 10/11/2016 Kymberly da silva, [facility] 7 09:19:53 Hypothyr oidism 43149225 Active 2012 Not Available [facility] 3 15:49:09 Hypothyr oidism 60129570 Completed 201203/30/2014 IMPRESSI ON: RECHECK ;LEVEL, CONTINUE SYNTHROI D; RECORDED 11/13/19 13 10:34AM BY MING MEZA MA, MYNOR ON/ADDEN DUM Koki Aranda PA-C [address], [place], [address] , [facility] 6 09:49:25 Laborato ry procedur e performe d 430905288 Completed 201203/30/2014 RECORDED 07/23/20 13 8:50AM BY MYNOR MARCOS ON/ADDEN DUM Koki Aranda MI-C [address] [facility] [address], [place], [address] , [facility] 6 09:49:26 Malaise and fatigue 806946716 Completed 201203/30/2014 RECORDED 10/01/19 13 8:53AM BY MYNOR RICHARDS ON/ADDEN DUM [facility] 7 09:19:55 Renewal of prescrip tion Completed 201203/30/2014 RECORDED 10/27/19 13 9:56AM BY MING MEZA MA, MYNOR ON/ADDEN DUM Koki Aranda MI-C [address] [facility] [address], [place], [address] , [facility] 6 09:49:26 Menopaus al symptom 78022491 Completed 10/11/2016 Kymberly da silva, [facility] 7 09:19:47 Active or passive immuniza tion Completed 200903/30/2014 RECORDED 08/28/20 10 8:53AM BY KYMBERLY Ribera MD, [facility] [address] [facility] [facility], [place], [address] , [facility] 6 09:49:26 Administ ration of viral vaccine Completed 201203/30/2014 RECORDED 10/01/19 13 8:53AM BY MYNOR RICHARDS ON/ADDEN DUM Koki [facility] [address], [place], [address] , [facility] 6 09:49:26 Administ ration of bacteria l and viral vaccine Completed 200703/30/2014 RECORDED 07/05/20 08 8:59AM BY ERA VINCENT, NURSE VISIT Koki Aranda PA-C [address] [facility] [address], [place], [address] , [facility] 6 09:49:26 Patient status finding [id number] Completed 201311/16/2014 RECORDED 12/24/19 14 10:28AM BY LAVERN BEASLEY, OFFICE VISIT Koki Aranda PA-C [address], [place], [address] , [facility] 6 09:49:26 Disorder of bone and articula r cartilag e 084546269 Completed 10/11/2016 [facility] 7 09:19:51 Osteopor osis 87604045 Active 2012 Not Available [facility] 3 15:49:09 Osteopor osis 55414494 Completed 201303/30/2014 RECORDED 11/20/19 14 12:48PM BY BIJU CALVIN MA, OFFICE VISIT Koki Aranda PA-C [address], [place], [address] , [facility] 6 09:49:26 History of malignan t neoplasm of breast 737211907 Active Not Available [facility] 3 20:38:52 Anorecta l disorder 307822778 Completed 10/11/2016 Kymberly da silva [facility] 7 09:20:04 Hemorrha ge of rectum and anus 624656729 Completed 201303/30/2014 IMPRESSI ON: FROM RADIATIO N PROCTITI S, PT IS DOING BETTER, ALSO HAD C DIF BUT THAT IS RESOLVED ; RECORDED 10/02/19 14 8:38AM BY MING MEZA MA, ANNOTATI ON/ADDEN DUM Koki Aranda PA-C [address], [place], [address] , [facility] 6 09:49:26 Urinary tract infectio us disease 63324367 Completed 201311/16/2014 RECORDED 11/20/19 14 12:48PM BY BIJU CALVIN MA, OFFICE VISIT Koki Aranda PA-C [address] [facility] [address], [place], [address] , [facility] 6 09:49:26 Vitamin D deficien cy 79539859 Completed 10/11/2016 Kymberly da silva, [facility] 7 09:19:58 Vomiting 377325270 Completed 10/11/2016 Kymberly da silva, [facility] 7 09:20:02 Blood chemistr y outside referenc e range 035470099 Completed 201304/26/2014 [facility]; RECORDED 09/24/19 14 2:46PM BY PRINCESS LOMBARDI MA, ANNOTATI ON/ADDEN DUM Koki Aranda PA-C [address], [place], [address] , [facility] 6 09:49:26 Patient status finding [id number] Completed 201304/26/2014 RECORDED 10/02/19 14 8:38AM BY MING MEZA MA, ANNOTATI ON/ADDEN DUM Koki Aranda PA-C [address] [facility] [address], [place], [address] , [facility] 6 09:49:26 Screenin g for malignan t neoplasm of breast Completed 201204/26/2014 RECORDED 10/01/19 13 8:53AM BY ELLEN CARR I, ANNOTATI ON/ADDEN DUM Koki Manoj NGUYEN [address] [facility] [address], [place], [address] , [facility] 6 09:49:26 Disorder of lower limb 980179159 Completed 201204/26/2014 RECORDED 10/01/19 13 8:53AM BY MYNOR RICHARDS ON/ADDEN DUM Koki Aranda PA-C [address], [place], [address] , [facility] 6 09:49:26 Screenin g for malignan t neoplasm of cervix Completed 201204/26/2014 RECORDED 10/01/19 13 8:53AM BY MYNOR RICHARDS ON/ADDEN DUM Koki Aranda PA-C [address] [facility] [address], [place], [address] , [facility] 6 09:49:26 Clostrid ioides difficil e infectio n 338682012 Completed 201204/26/2014 IMPRESSI ON: PT WITH ONGOING LOOSE STOOLS, FREQ, ABDO CRAMPING X WEEKS FOLLOWIN G MULTIPLE ROUNDS OF ABX TX. + C. DIFF 11/04. STARTED ON FLAGYL, CURRENTL Y DAY # 8. SXS NOT YET RESOLVED BUT IMPROVED . WILL EXTEND TO 14 DAY COURSE, CONTINUE PROBIOTI C AND QUESTRAN . WILL TOUCH BASE NEXT Y TO SEE HOW SHE IS FEELING. IF STILL SX CONSIDER PO VACO COURSE.; RECORDED 12/26/19 13 9:21AM BY MING MEZA MA, MYNOR ON/ADDEN DUM Koki Aranda PA-C [address] [facility] [address], [place], [address] , [facility] 6 09:49:25 Screenin g for malignan t neoplasm of colon Completed 201304/26/2014 RECORDED 10/02/19 14 8:38AM BY MING MEZA MA, MYNOR ON/ADDEN DUM Koki Aranda PA-C [address] [facility] [address], [place], [address] , [facility] 6 09:49:26 Diarrhea 53854752 Completed 201304/26/2014 IMPRESSI ON: PT WITH ONGOING FREQ STOOLS SINCE OCT, SOME DIARRHEA L, ABDOMINA L PAINS AND CRAMPING , FEW EPISODES OF VOMITING . DID HAVE + TEST FOR C DIFF IN OCT, TXED WITH FLAGYL X 14 DAYS WITH WHAT SEEMED TO INITIALL Y BE IMPROVEM ENT IN HER SXS. PAST TWO WEEKS BACK TO WHERE SHE WAS IN OCT THOUGH. NO FURTHER ABX TX SINCE. DISCUSSMargarette Castano WITH PCP, ALSO CONTACTE Brisa JACKMAN DIRECTLY AND SPOKE WITH NOLAN STUBBS. SHE REC THAT WE START PO VANCO OUTLINED , RETEST AND HAVE PT F/U WITH THEM. PT AWARE OF PLAN, WE WILL ARRANGE APPT WITH THEM FOR HER. CONTINUE DAILY PROBIOTI C.; RECORDED 10/02/19 14 8:38AM BY MING MEZA MA, MYNOR ON/ADDEN DUM Koki Aranda PA-C [address] [facility] [address] [address], [place], [address] , [facility] 6 09:49:26 Disorder of bone and articula r cartilag e 831489090 Completed 201204/26/2014 RECORDED 10/01/19 13 8:53AM BY MYNOR RICHARDS ON/ADDEN DUM [facility] 7 09:19:51 Influenz a vaccine needed [id number] 06 Completed 201204/26/2014 RECORDED 06/20/20 13 9:03AM BY BIJU CALVIN MA, NURSE VISIT Koki Aranda PA-C [address] [facility] [address] [address], [place], [address] , [facility] 6 09:49:26 Adult health examinat ion Completed 201304/26/2014 IMPRESSI ON: PT IS DOING WELL, UTD ON MAMMOGRA M, COLONOSP CY ADN CASH REGISTER BALANCER EXAM, HX OF BREAST AND UTERINE CANCER, FOLLOWED CLOSELY. ON VITS AND VIT D; RECORDED 12/24/19 14 10:16AM BY MYNOR MARCOS ON/ADDEN DUM Koki Aranda PA-C [address] [facility] [address], [place], [address] , [facility] 6 09:49:26 History of malignan t neoplasm of breast 524949458 Completed 201304/26/2014 IMPRESSI ON: [place] 2002 WITH CHEMO, RADIATIO N AND MASTECTO MY; RECORDED 10/02/19 14 8:38AM BY MING MEZA MA, MYNOR ON/ADDEN DUM Koki Aranda PA-C [address], [place], [address] , [facility] 6 09:49:26 Follow-u p encounte r Completed 201204/26/2014 RECORDED 10/01/19 13 8:53AM BY MYNOR RICHARDS ON/ADDEN DUM Koki [employer] PA-C [address], [place], [address] , [facility] 6 09:49:26 Laborato ry procedur e performe d 872786254 Completed 201311/16/2014 RECORDED 02/27/20 14 10:57AM BY CARLITA SCOTT, LAB REQ [employer] PA-C [address], [place], [address] , [facility] 6 09:49:26 Laborato ry procedur e performe d 072641892 Completed 201204/26/2014 RECORDED 07/23/20 13 8:50AM BY MYNOR MARCOS ON/ADDEN DUM [employer] PA-C [address], [place], [address] , [facility] 6 09:49:26 Malaise and fatigue 585036080 Completed 201204/26/2014 RECORDED 10/01/19 13 8:53AM BY MYNOR RICHARDS ON/ADDEN DUM Kymberly da silva, [facility] 7 09:19:55 Renewal of prescrip tion Completed 201204/26/2014 RECORDED 10/27/19 13 9:56AM BY MING MEZA MA, ANNOTATI ON/ADDEN DUM [facility] [address], [place], [address] , [facility] [place] 09:49:26 Active or passive immuniza tion Completed 200904/26/2014 RECORDED 08/28/20 10 8:53AM BY KYMBERLY Ribera MD, [facility] [address], [place], [address] , [facility] [place] 09:49:26 Administ ration of viral vaccine Completed 201204/26/2014 RECORDED 10/01/19 13 8:53AM BY ELLEN CARR I, FRANKLINATI ON/ADDEN DUM Koki Aranda MI-C [address], [place], [address] , [facility] 09:49:26 Administ ration of bacteria l and viral vaccine Completed 200704/26/2014 RECORDED 07/05/20 08 8:59AM BY ERA VINCENT, [facility] [address], [place], [address] , [facility] 09:49:26 Hemorrha ge of rectum and anus [id number] Completed 201304/26/2014 IMPRESSI ON: FROM RADIATIO N PROCTITI S, PT IS DOING BETTER, ALSO HAD C DIF BUT THAT IS RESOLVED ; RECORDED 10/02/19 14 8:38AM BY MING MEZA MA, ANNOTATI ON/ADDEN DUM [facility] [address], [place], [address] , [facility] 09:49:26 Delay when starting to pass urine [id number] Completed 201311/16/2014 RECORDED 07/04/20 14 9:35AM BY ADONIS Bond MD, PHONE ENCOUNTE Galina Telles Manoj PA-C [address], [place], [address] , [facility] 09:49:26 Acute vaginiti s 34270088 Completed 10/11/2016 Lavern Beasley MA null, [facility] 7 09:09:45 Hypercho lesterol emia 77899537 Completed 10/11/2016 yKmberly pelaez [facility], [facility] 7 09:19:43 History of right mastecto my 586141296 Active 2016 Not Available [facility] 3 20:38:52 History of malignan t neoplasm of uterine body 651183130 Active 2017 Not Available [facility] 3 20:38:52 Lymphede ma of lower extremit y 050755735 Active 2018 Not Available [facility] 3 20:38:52 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 Not Available [facility] 3 15:49:09 History of total hip arthropl asty 19284021763 6 Active 2020 Not Available [facility] 3 20:38:52 Exposure to SARS-CoV -2 Completed 02/23/2021 Removal Reason: Problem added by user [email or web address] 1 from the COVID-19 watch flag Leydi Obando [facility] 1 08:50:02 History of polyp of colon 860875468 Active 2021 Not Available [facility] 3 20:38:52 Cough 94986999 Completed 202108/07/2022 Adonis Dale MD [address], [place], [address] , [facility] 06:46:57 D-dimer above referenc e range 847086959 Completed 202111/27/2023 SMITA SU MD [address], [place], [address] , [facility] 10:11:34 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 Hudson office. previous from Oct negative . 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 668406881 Completed 02/29/2024 SMITA SU MD [address], [place], [address] , [facility] 4 17:39:41 Malignan t tumor of breast 321079167 Completed 02/29/2024 SMITA SU MD [address], [place], [address] , [facility] 4 17:39:44 Malignan t neoplasm of uterus 648223385 Completed 201102/29/2024 SMITA SU MD [address], [place], [address] , [facility] 4 17:39:47 History of operativ e procedur e on hip 837802475 Active 2022 Not Available [facility] 3 15:49:09 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 690599365 Active AN Marcos, [facility] 4 10:16:06 Malignan t tumor of breast 165336155 Active AN Marcos, [facility] 4 10:16:06 Malignan t neoplasm of uterus 240742718 Active 2011 AN Marcos, [facility] 4 10:16:06 Osteonec rosis of hip 004373304 Active 2019 AN Marcos, [facility] 4 10:16:06 At increase d risk for falls 347932345 Active 2024 SMITA SU MD [address], [place], [address] , [facility] 11:41:46 Muscle weakness of upper limb 406232962 Active 2024 SMITA SU MD [address], [place], [address] , [facility] 11:42:10 Problem Notes None recorded. Procedures Surgical History Date Name Laterality Status Provider Name and Address Organization Details Recorded Time 03/02/20 24 Advanced Care Planning completed SMITA SU MD [address], [place], [address], [facility] 02/29/2024 17:29:53 07/04/20 23 Most Recent Mammogram completed Teresa Quiñonez [facility] 07/05/2023 10:14:47 07/04/20 23 Mammogram one breast completed Teresa Quiñonez [facility] 07/05/2023 10:14:36 02/22/20 23 Girdlestone resection arthroplasty of hip completed SMITA SU MD [address], [place], [address], [facility] 02/28/2023 16:46:33 03/02/20 22 Mammogram one breast completed Leydi Obando [facility] 03/15/2022 10:26:48 11/23/19 22 Date of Last Colonoscopy completed La Barone [facility] 12/21/2021 09:30:08 11/23/19 22 Colonoscopy completed La Barone [facility] 12/21/2021 09:29:46 06/23/20 21 Most Recent Bone Density completed Princess stubbs [place] [facility] 04/05/2023 13:41:30 06/23/20 21 Dxa bone density josselyn vrt fx completed Princess stubbs [place] [facility] 04/05/2023 13:41:17 08/16/20 20 total replacement of left hip joint completed Adonis Dale MD [address] [address], [place], [address], [facility] 08/15/2022 07:30:37 02/11/20 20 Mini-Cog Test completed Lavern Beasley MA [facility] 02/11/2020 13:11:46 10/16/19 19 Mini-Cog Test completed Lavern Beasley MA [facility] 10/16/2018 08:49:05 10/16/19 19 Advanced Care Planning completed Lavern Beasley MA [facility] 10/16/2018 08:47:38 10/14/19 18 Fall Risk Assessment completed Lavern Beasley MA [facility] 10/14/2017 10:35:27 10/14/19 18 Mini-Cog Test completed Lavern Beasley MA [facility] 10/14/2017 10:34:43 10/11/19 17 Fall Risk Assessment completed Lavern Beasley MA [facility] 10/11/2016 09:11:13 10/11/19 17 Mini-Cog Test completed Lavern Beasley MA [facility] 10/11/2016 09:10:14 10/11/19 17 Advanced Care Planning completed Deandra Dia [facility] 10/15/2016 15:35:31 10/10/19 16 Fall Risk Assessment completed Lavern Beasley MA [facility] 10/10/2015 09:16:07 10/10/19 16 Mini-Cog Test completed Lavern Beasley MA [facility] 10/10/2015 09:17:18 10/07/19 15 Fall Risk Assessment completed Nia Horner [place] [facility] 10/07/2014 14:06:06 10/07/19 15 Mini-Cog Test completed Nia Horner MA [facility] 10/07/2014 14:09:48 09/16/19 11 Endometrial Biopsy completed Lavern Beasley MA [facility] 02/23/2021 09:09:02 09/16/19 11 Hysterectomy completed Lavern Beasley MA [facility] 02/23/2021 09:09:02 09/16/19 03 excision of right breast completed Princess stubbs MA [facility] 04/05/2023 13:39:08 Cancer Surgery completed Lavern disla MA [facility] 02/23/2021 09:09:02 Imaging Results None recorded. Procedure Notes None recorded. Medical Equipment None Reported. Allergies Allergen ID Allergen Name Allergen Category Reaction Reaction Severity Criticality Documentation Date Start Date Code Code System Note Provider Name and Address Organization Details Recorded Time 38867 gabapenti n medicatio n vomiting Not available Not available 04/05/2023 83635 RxNorm AN Marcos [facility] 3 11:31:42 37805 No known allergy (situatio n) Not available Not available Not available Not available 04/19/2023 21977 6003 SNOMED AN Marcos [facility] 3 11:31:42 Medications Name Sig Start Date Stop Date Status Note LastModified by Organization Details LastModified Time Miralax 17 gram oral powder packet Take 1 packet every day by oral route as directed . 2022 active Not Available Not Available Not Avai lable multivita min tablet Take 1 tablet every day by oral route. active Not Available Not Available No t Available amoxicill in 500 mg capsule TAKE 1 CAPSULE BY MOUTH 3 TIMES A DAY FOR 7 DAYS 03/06 completed Not Available Not Available Not Available furosemid e 40 mg tablet TAKE 1 TABLET BY MOUTH EVERY DAY 11/22 completed lowered the dose due to BP Not Available Not Available Not Available silver sulfadiaz ine 1 % topical cream APPLY TO AFFECTED AREA 4 TIMES A DAY 04/05 completed Not Available Not Available Not Available terconazo le 0.4 % vaginal cream INSERT 1 APPLICAT ORFUL VAGINALL Y AT BEDTIME FOR 7 DAYS 03/06 completed Not Available Not Available Not Available acetamino phen 325 mg tablet 03/26 completed Not Available Not Available Not Available doxycycli ne hyclate 100 mg capsule TAKE 1 CAPSULE BY MOUTH TWICE A DAY FOR 10 DAYS 08/21 completed Not Available Not Available Not Available azithromy alona 250 mg tablet TAKE 2 TABLETS BY MOUTH TODAY, THEN TAKE 1 TABLET DAILY FOR 4 DAYS 03/13 completed Not Available Not Available Not Available miconazol e nitrate 2 % topical cream APPLY TO THE AFFECTED AREA(S) BY TOPICAL ROUTE 2 TIMES PER DAY IN THEMORNI NG AND EVENING 08/29 completed Not Available Not Available Not Available fluconazo le 150 mg tablet Take 1 tablet every day by oral route for 3 days. active Not Available Not Available No t Available benzonata te 200 mg capsule TAKE 1 CAPSULE 3 TIMES A DAY BY ORAL ROUTE DIRECTED FOR 10 DAYS. 08/06 completed Not Available Not Available Not Available hydrocodo ne 5 mg-acetam inophen 325 mg tablet TAKE 1 TABLET BY MOUTH EVERY 6 HOURS NEEDED 03/06 completed Not Available Not Available Not Available ibuprofen 200 mg capsule Take 2 capsules every 6 hours by oral route as needed. active Not Available Not Available No t Available prednison e 20 mg tablet TAKE 2 TABLETS BY MOUTH EVERY DAY DIRECTED FOR 5 DAYS 09/24 completed Not Available Not Available Not Available alendrona te 70 mg tablet TAKE 1 TABLET BY MOUTH WEEKLY active Not Available Not Available No t Available betametha sone, augmented 0.05 % topical cream APPLY SPARINGL Y TO EACH BUMP/BIT E TWICE DAILY FOR UP TO TWO WEEKS. 08/06 completed Not Available Not Available Not Available clobetaso l 0.05 % topical cream APPLY A THIN LAYER TO THE AFFECTED AREA(S) BY TOPICAL ROUTE 1-2X PER WEEK active Not Available Not Available No t Available potassium chloride ER 10 mEq tablet,ex tended release Take 20 milliequ ivalents twice a day by oral route. 08/11 completed Not Available Not Available Not Available metronida zole 500 mg tablet 3 TIMES PER DAY 11/17 completed RECORDED 12/11/19 13 2:58PM BY BISI DUONG VALENZUELA PA-C, MEDICATI ON AUTO-GERARDO CTIVATIO N; Not Available Not Available Not Available melatonin 3 mg tablet Take 1 tablet every day by oral route as needed. active Not Available Not Available No t Available acetamino phen 300 mg-codein e 30 mg tablet TAKE 1 TABLET BY MOUTH EVERY 6 HOURS FOR 7 DAYS 08/22 completed Not Available Not Available Not Available ciproflox acin 250 mg tablet TWO TIMES DAILY 03/22 completed RECORDED 03/30/20 14 3:53PM BY ADONIS Bond MD, MEDICATI ON AUTO-GERARDO CTIVATIO N; Not Available Not Available Not Available sulfameth oxazole 800 mg-trimet hoprim 160 mg tablet BID 10/09 completed RECORDED 10/13/19 14 9:35AM BY NICOLAS THOMAS RN-BC, MEDICATI ON AUTO-GERARDO CTIVATIO N; Not Available Not Available Not Available peg-elect rolyte solution 420 gram oral solution active Not Available Not Available Not Available acetamino phen 650 mg tablet Take 1 tablet 4 times a day by oral route as needed. 2022 active Not Available Not Available Not Avai lable tramadol 50 mg tablet Take 1 tablet by mouth every day as needed for 30 days active Not Available Not Available No t Available acetamino phen 500 mg tablet 09/29 completed Not Available Not Available Not Available triamcino lone acetonide 0.1 % topical cream APPLY SPARINGL Y TO RASH TWICE A DAY FOR UP TO 2 WEEKS NEEDED. 03/06 completed Not Available Not Available Not Available amoxicill in 500 mg tablet TAKE 1 TABLET BY MOUTH EVERY 8 HOURS UNTIL FINISHED 03/06 completed Not Available Not Available Not Available vancomyci n 125 mg capsule Q 6 HRS 01/08 completed RECORDED 05/04/20 13 1:10PM BY BISI VALENZUELA PA-C, MEDICATI ON AUTO-GERARDO CTIVATIO N; Not Available Not Available Not Available cefadroxi l 500 mg capsule Take 500 mg twice a day by oral route. 08/11 completed Not Available Not Available Not Available levothyro xine 100 mcg tablet TAKE 1 TABLET BY MOUTH EVERY DAY active Not Available Not Available No t Available hydrocort isone 2.5 % topical cream with perineal applicato r APPLY A SMALL AMOUNT VIA APPLICAT OR EVERY NIGHT AT BEDTIME active Not Available Not Available No t Available amoxicill in 875 mg tablet Take 875 mg twice a day by oral route. 05/23 completed Not Available Not Available Not Available hydromorp samantha 2 mg tablet Take 4 mg every 4 hours by oral route. 05/23 completed Not Available Not Available Not Available lorazepam 0.5 mg tablet TAKE 1 TABLET BY MOUTH EVERY DAY FOR 30 DAYS active Not Available Not Available No t Available exemestan e 25 mg tablet DAILY 06/17 completed RECORDED 06/17/20 09 1:45PM BY AN BETTENCOURT, OFFICE VISIT;DR KIM HOLLAND Not Available Not Available Not Available Questran 4 gram oral powder 2 TIMES PER DAY 12/06 completed RECORDED 12/11/19 13 2:58PM BY BISI VALENZUELA, PA-C, MEDICATI ON AUTO-GERARDO CTIVATIO N; Not Available Not Available Not Available cephalexi n 500 mg capsule TAKE 2 CAPSULES BY MOUTH 2HOUR BEFORE PROCEDUR ES THEN 1 CAP EVERY 6 HOURS 04/05 completed Not Available Not Available Not Available ferrous sulfate 325 mg (65 mg iron) tablet TAKE 1 TABLET BY MOUTH EVERY DAY 12/14 completed 11/18/2024 courtesy refill Not Available Not Available Not Available IBU 400 mg tablet Take 1 tablet every 4 hours by oral route as needed. 02/10 completed Not Available Not Available Not Available levothyro xine 125 mcg tablet TAKE 1 TABLET BY MOUTH EVERY DAY 08/12 completed Not Available Not Available Not Available warfarin 2 mg tablet 3 mg by oral route. 03/26 completed Not Available Not Available Not Available Synthroid 88 mcg tablet active Not Available Not Available Not Available Iron (Ferrous Gluconate ) 325 mg tablet Take 1 tablet twice a day by oral route as directed for 30 days. 04/10 completed Iroin levels high so LGD ordered stop med for now Not Available Not Available Not Available gabapenti n 300 mg capsule TAKE 1 CAPSULE BY MOUTH THREE TIMES A DAY 09/24 completed Not Available Not Available Not Available Senna Laxative 8.6 mg tablet Take 2 tablets every day by oral route as needed. active Not Available Not Available No t Available raloxifen e 60 mg tablet Take 1 tablet every day by oral route as directed for 90 days. 10/11 completed Not Available Not Available Not Available diclofena c sodium 75 mg tablet,de layed release Take 1 tablet twice a day by oral route for 30 days. active Not Available Not Available No t Available hydrochlo rothiazid e 25 mg tablet Take 1 tablet every day by oral route for 30 days. 04/09 completed Not Available Not Available Not Available mupirocin 2 % topical ointment active Not Available Not Available Not Available furosemid e 20 mg tablet TAKE 1 TABLET BY MOUTH EVERY DAY 02/10 completed Not Available Not Available Not Available Coumadin 5 mg tablet 5 mg by oral route. 08/31 completed Not Available Not Available Not Available gabapenti n 100 mg capsule TAKE 1 CAPSULE BY MOUTH THREE TIMES A DAY NEEDED 10/19 completed Not Available Not Available Not Available ergocalci ferol (vitamin D2) 1,250 mcg (50,000 unit) capsule TAKE 1 CAPSULE BY MOUTH ONCE WEEKLY active Not Available Not Available No t Available clobetaso l 0.05 % topical ointment PLEASE SEE ATTACHED FOR DETAILED DIRECTIO NS 08/21 completed Not Available Not Available Not Available levofloxa alona 750 mg tablet TAKE 1 TABLET BY MOUTH EVERY DAY DIRECTED FOR 7 DAYS 08/06 completed Not Available Not Available Not Available albuterol sulfate HFA 90 mcg/actua tion aerosol inhaler INHALE 2 PUFFS INTO THE LUNGS EVERY 4 HOURS NEEDED 08/06 completed Not Available Not Available Not Available hydromorp samantha 4 mg tablet TAKE 1-1.5 TABLETS (4-6 MG TOTAL) BY MOUTH EVERY 4 (FOUR) HOURS NEEDED. PARTIAL FILL OK 04/05 completed Not Available Not Available Not Available ceftriaxo ne 10 gram solution for injection 04/05 completed Not Available Not Available Not Available Cortispor in-TC 3.3 mg-3 mg-10 mg-0.5 mg/mL ear drops,tommie pension FOUR TIMES DAILY 11/29 completed RECORDED 12/01/19 14 3:18PM BY ADONIS Bond MD, MEDICATI ON AUTO-GERARDO CTIVATIO N; Not Available Not Available Not Available levothyro xine 112 mcg tablet TAKE 1 TABLET BY MOUTH EVERY DAY active Not Available Not Available No t Available ceftriaxo ne 2 gram solution for injection 04/05 completed Not Available Not Available Not Available Vitamin D 50,000 unit capsule ONCE A WEEK 08/28 completed RECORDED 08/28/20 10 8:21AM BY LAVERN BEASLEY, OFFICE VISIT; Not Available Not Available Not Available cyclobenz aprine 5 mg tablet TAKE 1 TABLET BY MOUTH TWICE A DAY NEEDED active Not Available Not Available No t Available Klor-Con M20 mEq tablet,ex tended release active Not Available Not Available Not Available Readi-Cat 2 2.1 % (w/v), 2.0 % (w/w) oral suspensio n active Not Available Not Available Not Available Canasa 1,000 mg rectal supposito ry IN AM AND 1 AT NIGHT active Not Available Not Available No t Available Boostrix Tdap 2.5 Lf unit-8 mcg-5 Lf/0.5 mL intramusc ular syringe 04/09 completed Not Available Not Available Not Available ceftriaxo ne 2 gram/50 mL in dextrose (iso-osm) intraveno us piggyback 2 g every 24 hours by intraven . route. 04/06 completed Not Available Not Available Not Available Zostavax (PF) 19,400 unit/0.65 mL subcutane ous suspensio n CARMELO X 1 09/19 completed RECORDED 09/20/19 12 9:10AM BY KYMBERLY Ribera MD, MEDICATI ON AUTO-GERARDO CTIVATIO N; Not Available Not Available Not Available sodium chloride 0.9 % syringe flush 10 ml as needed IV 08/29 completed Not Available Not Available Not Available chlorhexi dine gluconate 2 % towelette q applicat ion daily as directed 04/19 completed Not Available Not Available Not Available cholecalc iferol (vitamin D3) 50 mcg (2,000 unit) capsule QD 05/19 completed RECORDED 05/19/20 13 9:22AM BY LAVERN BEASLEY, OFFICE VISIT; Not Available Not Available Not Available GaviLyte- G 236 gram-22.7 4 gram-6.74 gram-5.86 gram oral solution TAKE 8 OUNCE BY MOUTH DIRECTED FOLLOW INSTRUCT IONS PROVIDED TO YOU BY DOCTORS OFFICE 03/06 completed Not Available Not Available Not Available Prolia 60 mg/mL subcutane ous syringe INJECT 1 MILLILIT ER (60 MG) BY SUBCUTAN EOUS ROUTE EVERY 6 MONTHS IN THE UPPER ARM, UPPER THIGH OR ABDOMEN active Not Available Not Available No t Available Probiotic take 1 tab daily po active Not Available Not Available No t Available Dificid 200 mg tablet active Not Available Not Available Not Available Eliquis 5 mg tablet TAKE 1 TABLET BY MOUTH TWICE A DAY 01/18 completed Not Available Not Available Not Available calamine- menthol-p etrolat-z inc apply to right inner thigh as directed 04/05 completed Not Available Not Available Not Available potassium chloride ER 20 mEq tablet,ex tended release TAKE 1 TABLET BY MOUTH TWICE A DAY active Not Available Not Available No t Available Jublia 10 % topical solution with applicato r APPLY TO AFFECTED TOENAIL( S) BY TOPICAL ROUTE ONCE DAILY active Not Available Not Available No t Available calcium 166.75 mg-vit D3 166.75 unit-vit C-vit K2-minera ls capsule Take 1 capsule every day by oral route. active Not Available Not Available No t Available Shingrix (PF) 50 mcg/0.5 mL intramusc ular suspensio n, kit 10/15 completed Not Available Not Available Not Available baclofen 5 mg tablet Take 1 tablet every 8 hours by oral route as needed. 11/27 completed only uses as needed Not Available Not Available Not Available Vitals Date Recorded Body height Body mass index (BMI) Body weight Oxygen saturation Oxygen saturation in Arterial blood by Pulse oximetry Heart rate Body temperature Systolic blood pressure Diastolic blood pressure Provider Name and Address Organization Details Last Updated DateTime 5 168.91 cm 25.1 kg/m2 94276.5 9 g 98 % 98 % 85 /min 98.2 [degF] 112 mm[Hg] 71 mm[Hg] Lavern Beasley MA [facility] 5 14:12:42 Date Recorded Body height Provider Name an d Address Organization Details Last Updated DateTime 01/15/2025 168.91 cm Lavern Beasley MA [facility] 01/15/2025 15:38:42 Date Recorded Body height Body mass index (BMI) Body weight Oxygen saturation Oxygen saturation in Arterial blood by Pulse oximetry Heart rate Body temperature Systolic blood pressure Diastolic blood pressure Provider Name and Address Organization Details Last Updated DateTime 4 168.91 cm 25.4 kg/m2 86697.7 8 g 95 % 95 % 76 /min 98 [degF] 117 mm[Hg] 61 mm[Hg] Lavern Beasley MA [facility] 4 10:22:26 Date Recorded Body height Body mass index (BMI) Body weight Oxygen saturation Oxygen saturation in Arterial blood by Pulse oximetry Heart rate Body temperature Systolic blood pressure Diastolic blood pressure Provider Name and Address Organization Details Last Updated DateTime 4 168.91 cm 25.1 kg/m2 63279.5 9 g 98 % 98 % 79 /min 97.9 [degF] 111 mm[Hg] 69 mm[Hg] Lavern Beasley MA [facility] 4 11:32:09 Social History Question Answer Notes LastModified by Organizat ion Details LastModified Time Tobacco Smoking Status Never Smoker Lavern Beasley MA [facility] 04/05/2014 08:48:08 Do You Have An Advance Directive? No [email or web address] Information not available 08/06/2022 Is Blood Transfusion Acceptable In An Emergency? Yes [email or web address] Information not available 10/11/2016 What Is Your Level Of Caffeine Consumption? Moderate Twice Daily; Green Tea Information not available 01/18/2023 How Much Tobacco Do You Chew? None Information not available 09/14/2017 What Type Of Diet Are You Following? REGULAR Information not available 08/16/2014 Which Illicit Or Recreational Drugs Have You Used? None Information not available 12/31/2018 Live Alone Or With Others? With Others (Abraham) [email or web address] Information not available 08/06/2022 Do You Take Precautions To Prevent Distracted Driving? Yes [email or web address] Information not available 10/11/2016 How Often Do You Need To Have Someone Help You When You Read Instructions, Pamphlets, Or Other Written Material From Your Doctor Or Pharmacy? Never Information not available 09/14/2017 Have You Served In The ? No [email or web address] Information not available 10/11/2016 Have You Or Anyone In Your Household Had Any Of The Following Symptoms In The Last 14 Days: Sore Throat, Cough, Chills, Body Aches For Unknown Reasons, Shortness Of Breath For Unknown Reasons, Loss Of Smell, Loss Of Taste, Fever At Or Greater Than 100 Degrees Fahrenheit? No [email or web address] Information not available 02/23/2021 Are You Or Anyone In Your Household A Health Care Provider Or Emergency Responder? No [email or web address] Information not available 03/23/2020 To The Best Of Your Knowledge Have You Been In Close Proximity To Any Individual Who Tested Positive For COVID-19? No Information not available 03/23/2020 *AWV ONLY* Are You Presently Prescribed Opioid Medication By PCP Or Specialist? If YES -Provider Assess The Benefit For Other, Non-opioid Pain Therapies Instead, Even If The Patient Does Not Have OUD But Is Possibly At Risk. Yes Tramadol Prn [email or web address] Information not available 03/02/2024 Have You Recently Traveled To A COVID-19 High Risk Area Or Gathering In The Last 10 Days? No [email or web address] Information not available 02/23/2021 What Was The Date Of Your Most Recent Tobacco Screening? 03/02/2024 [email or web address] Information not available 03/02/2024 How Many Children Do You Have? 3 [email or web address] Information not available 02/23/2021 Do You Use Protection During Sex? Always [email or web address] Information not available 02/23/2021 Seat Belts Used Routinely Yes Information not available 08/06/2022 Are You Sexually Active? Yes [email or web address] Information not available 02/23/2021 Smoke Alarm In Home Yes [email or web address] Information not available 08/06/2022 At What Age Did You Start Smoking Tobacco? 0 Information not available 09/14/2017 Are You Passively Exposed To Smoke? No Information not available 09/14/2017 How Much Tobacco Do You Smoke? No Information not available 09/14/2017 General Stress Level Low [email or web address] Information not available 08/06/2022 Do You Use Sunscreen Routinely? Yes [email or web address] Information not available 08/16/2014 How Many Years Have You Smoked Tobacco? 0 Information not available 09/14/2017 Sex: Unknown Functional Status Question Answer Note LastModified by Organizat ion Details LastModified Time Do you use any illicit or recreational drugs? No Information not available 01/18/2023 Do you or have you ever used any other forms of tobacco or nicotine? No Information not available 01/18/2023 What is your level of alcohol consumption? None [email or web address] Information not available 08/16/2014 Do you or have you ever used smokeless tobacco? Never used smokeless tobacco [email or web address] Information not available 02/11/2020 Are you currently employed? No [email or web address] Information not available 02/11/2020 Are you able to walk? [email or web address] Information not available 01/18/2023 Are you able to care for yourself? Yes [email or web address] Information not available 08/16/2014 Do you or have you ever used e-cigarettes or vape? Never used electronic cigarettes [email or web address] Information not available 08/06/2022 What is your exercise level? None Information not available 01/18/2023 Mental Status None recorded. Family History Relationship Description Onset Age of this Age Resolved Age Notes LastModified by Organization Details LastModified Time Sister Carcinoma in situ of breast [email or web address] Not available 08/06 13:33:13 Sister Malignant tumor of breast [email or web address] Not available 02/23 09:08:25 Sister Malignant neoplasm of lung [email or web address] Not available 02/23 09:08:25 Sister Carcinoma in situ of esophagus [email or web address] Not available 03/02 10:24:29 Father Heart disease [email or web address] Not available 09:14:28 Mother Cerebrovascu lar accident [email or web address] Not available 12/28/2015 09:14:28 Unspecified Relation Disorder of thyroid gland [email or web address] Not available 02/23 09:08:25 Notes:No FH of colon cancer Medical History Condition Response Gout N Other Y Kidney Stones N Blood Diseases N Hyperthyroidism N Breast Cancer Y COPD N Depression N Lung Disease N Hypothyroidism Y Defects or Inherited Disease N Anesthesia Complications N Headaches/Migraines N Anxiety Disorder N Varicose Veins N Obesity N Vision or Eye Problems N Arthritis N Head Injury/Concussion N Polyps N Infertility N Congenital Anomalies N Acid Reflux (GERD) N Cancer N Stroke N ADHD N Endometriosis N High Cholesterol N Liver Disease N Fibromyalgia N Kidney Disease N Heart Problems N Ear or Hearing Problems N Hospitalizations N Thyroid Problems N GI Problems N Acne N Eating Disorder N Skin Problems N Anemia N Constipation N Bladder Problems N Mental Illness N Diabetes N Ovarian Cancer N Blood Transfusions N Seizures/Epilepsy N Tuberculosis N AIDS/HIV N Congestive Heart Failure (CHF) N Eczema N Abuse/Domestic Violence N Diverticulitis N Asthma N Allergies N Reflux/GERD N Hepatitis N Pulmonary Embolism N Hypertension N Chicken Pox N Autism Spectrum Disorder (ASD) N Osteoporosis Y Gynecological History Statement/Question Response Date of Last Pap Smear Date of Last Colonoscopy 11/22/2021 Most Recent Mammogram 07/04/2023 Most Recent Bone Density 06/23/2021 Obstetrics History GPAL:G 0 P 0 0 0 0 Immunizations Vaccine Type Date Status Note Provider Nam e and Address Organization Details Recorded Time Influenza, high-dose, trivalent, PF 9 completed Not Available [facility] 06/28/2023 20:38:53 zoster live 9 completed Not Available [facility] 06/28/2023 20:38:53 influenza, unspecified formulation 2 completed Teresa Quiñonez [facility] 06/17/2023 10:45:44 COVID-19, mRNA, LNP-S, PF, 100 mcg/0.5mL dose or 50 mcg/0.25mL dose 1 completed Not Available [facility] 06/28/2023 20:38:52 COVID-19, mRNA, LNP-S, PF, 30 mcg/0.3 mL dose 1 completed Not Available [facility] 06/28/2023 20:38:52 Influenza, adjuvanted, quadrivalent, PF 1 completed Not Available [facility] 06/28/2023 20:38:52 COVID-19, mRNA, LNP-S, PF, 30 mcg/0.3 mL dose, bonnie-sucrose 2 completed Not Available [facility] 06/28/2023 20:38:53 zoster recombinant 0 completed Not Available [facility] 06/28/2023 20:38:52 zoster recombinant 9 completed Not Available [facility] 06/28/2023 20:38:52 Tdap 8 completed Not Available [facility] 06/28/2023 20:38:53 COVID-19, mRNA, LNP-S, PF, 100 mcg/0.5mL dose or 50 mcg/0.25mL dose 1 completed Not Available [facility] 06/28/2023 20:38:52 Influenza, high-dose, quadrivalent, PF 2 completed Not Available [facility] 06/28/2023 20:38:52 COVID-19, mRNA, LNP-S, bivalent, PF, 30 mcg/0.3 mL dose 2 completed Not Available [facility] 06/28/2023 20:38:53 COVID-19, mRNA, LNP-S, PF, 30 mcg/0.3 mL dose 1 completed Not Available [facility] 06/28/2023 20:38:52 COVID-19, mRNA, LNP-S, PF, 30 mcg/0.3 mL dose 1 completed Not Available [facility] 06/28/2023 20:38:52 Pneumococcal conjugate PCV 13 5 completed Not Available [facility] 06/28/2023 20:38:53 pneumococcal polysaccharide PPV23 0 completed Not Available [facility] 06/28/2023 20:38:53 Influenza, high-dose, trivalent, PF 7 completed Not Available [facility] 06/28/2023 20:38:53 Influenza, high-dose, quadrivalent, PF 0 completed Not Available [facility] 06/28/2023 20:38:52 Influenza, split virus, quadrivalent, PF 5 completed Not Available [facility] 06/28/2023 20:38:53 Influenza, high-dose, trivalent, PF 6 completed Not Available [facility] 06/28/2023 20:38:53 Influenza, split virus, trivalent, PF 4 completed Not Available [facility] 06/28/2023 20:38:53 Influenza, high-dose, trivalent, PF 8 completed Not Available [facility] 06/28/2023 20:38:53 Influenza, adjuvanted, quadrivalent, PF 3 completed AN Champion, [facility] 08/29/2023 11:33:12 COVID-19, mRNA, LNP-S, PF, bonnie-sucrose, 30 mcg/0.3 mL 3 completed AN Champion, [facility] 08/29/2023 11:33:12 COVID-19, mRNA, LNP-S, PF, 50 mcg/0.5 mL 4 completed Teresa da silva [facility] 06/18/2024 09:17:20 Influenza, high-dose, trivalent, PF 4 completed Teresa da silva [facility] 06/18/2024 09:17:20 Tdap 8 completed Not Available [facility] 06/28/2023 20:38:53 Influenza, split virus, trivalent, preservative 9 completed Not Available [facility] 06/28/2023 20:38:53 Influenza, split virus, trivalent, preservative 0 completed Not Available [facility] 06/28/2023 20:38:53 pneumococcal polysaccharide PPV23 0 completed Not Available [facility] 06/28/2023 20:38:53 Influenza, split virus, trivalent, preservative 1 completed Not Available [facility] 06/28/2023 20:38:53 Influenza, split virus, trivalent, preservative 2 completed AN Champion [facility] 08/29/2023 11:33:12 Influenza, split virus, trivalent, preservative 3 completed Not Available [facility] 06/28/2023 20:38:53 zoster live 3 completed Not Available [facility] 06/28/2023 20:38:53 Past Encounters Encounter ID Performer Location Encounter Start Date Encounter Closed Date Diagnosis/Indication Diagnosis SNOMED-CT Code Diagnosis ICD10 Code Diagnosis Note [id number] Kymberly pelaez MD Main Office [address] [facility] [address] [place] [address] 04/05/2014 08:35:24 04/05/2014 09:22:06 Hypothyroidism [id number] on meds, feels well on this dose History of malignant neoplasm of breast [id number] up to date on followup Malignant neoplasm of corpus uteri, excluding isthmus 003355379 hx of surgery, doing well, followed in [place] [id number] [facility] [address] [facility] [address] [place] [address] 04/08/2008 00:00:00 [id number] [facility] [address] [place] [address],[place] [address] [place] [address] 06/21/2008 00:00:00 [id number] [facility] [address] [place] [address],[place] [address] [place] [address] 06/06/2009 00:00:00 [id number] [facility] [address] [facility] [address] [place] [address] 06/17/2009 00:00:00 [id number] [facility] [address] [place] [address],[place] [address] [place] [address] 08/22/2009 00:00:00 [id number] [facility] [address] [facility] [address] [place] [address] 02/20/2010 00:00:00 [id number] [facility] [address] [facility] [address] [place] [address] 08/28/2010 00:00:00 [id number] [facility] [address],[place] [address] [place] [address] 11/27/2010 00:00:00 [id number] [facility] [address],[place] [address] [place] [address] 09/18/2011 00:00:00 [id number] [facility] [facility] [address],[place] [address] [place] [address] 12/19/2011 00:00:00 [id number] [facility] [address] [facility] [address],[place] [address] [place] [address] 10/01/2012 00:00:00 [id number] [facility] [facility] [address] [facility] [address],[place] [address] [place] [address] 10/27/2012 00:00:00 [id number] [facility] [facility] [address] [facility] [address] [place] [address] 11/13/2012 00:00:00 [id number] [facility] [facility] [address] [facility] [address] [place] [address] 12/25/2012 00:00:00 [id number] [facility] [facility] [address] [facility] [address] [place] [address] 05/19/2013 00:00:00 [id number] [facility] [facility] [address] [facility] [address] [place] [address] 07/23/2013 00:00:00 [id number] [facility] [facility] [address] [facility] [address] [place] [address] 10/02/2013 00:00:00 [id number] [facility] [facility] [address] [facility] [address],[place] [address] [place] [address] 11/19/2013 00:00:00 [id number] [facility] [facility] [address] [facility] [address] [place] [address] 12/23/2013 00:00:00 [id number] Kymberly pelaez MD Main Office [address] [facility] [address] [place] [address] 07/13/2014 13:50:54 07/13/2014 14:39:15 Needs influenza immunization [id number] Kymberly pelaez MD Main Office [address] [facility] [address] [place] [address] 08/16/2014 14:49:46 08/16/2014 16:10:17 Vomiting [id number] mostlikely form intermitta nt small bowel obstrucito n, evaluated by Dr Mejía. 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 31482326 Administra tion of pneumococcal vaccine 72799061 Osteoporosis 37396933 pt will see DR Johnson, recent bone density with loss in spine Hypothyroidism 64868053 on meds, feels well on this dose [id number] KRISTA Nogueira Main Office [address] [address] [place] [address] 11/16/2014 09:41:40 11/16/2014 10:07:38 Acute vaginitis 50012530 [id number] Kymberly pelaez MD Main Office [address] [facility] [address] [place] [address] 03/28/2015 09:39:18 03/28/2015 10:31:34 Osteoporosis 96589573 pt with bone loss,med changed for osteoporos is, followed by Dr Leal Primary an lignant neoplasm of female breast 13413078 followed by DR Janice Salinas, keeps up with ehr screening Vomiting [id number] most likely from intermitta nt small bowel obstructio n, evaluated by Dr Mejía. CT scan shows evidenc eof radiation chagnes to bowel,is on miralax and small meals. Hypothyroidism 21559245 on meds, feels well on this dose History of malignant neoplasm of uterine body 552061151 CT scan by Dr Mejía with bony findings in pelvis, could all be due to post radiation treatment, it cannot rule out metastatic disease, pt to bring a disc of the scan to her radiation onology doc in [place] to review [id number] Kymberly pelaez MD Main Office [address] [facility] [address] [facility] [place] [address] 06/16/2015 13:56:49 06/16/2015 14:07:58 Needs influenza immunization 607012113 Z23 [id number] Kymberly pelaez MD Main Office [address] [facility] [address] [facility] [place] [address] 10/10/2015 09:02:00 10/10/2015 09:52:29 History of malignant neoplasm of breast 294438682 Z85.3 up to date on followup, sees Dr Janice Salinas and utd on mammogram Malignant neoplasm of corpus uteri, excluding isthmus 165336997 C54.9 hx of surgery, doing well, followed in [place], will see them 09/30 Hypothyroidism 79011475 E03.9 on meds, feels well on this dose Adult heal th examination 388907713 Z00.00 pt is utd with all her screening, keep healthy and active. Hypercholesterolemia 136 82065 E78.0 [id number] Koki Aranda PA-C Main Office [address] [facility] [address] [facility] [place] [address] 12/28/2015 08:56:04 12/28/2015 09:50:34 Acute vaginitis 38629591 N76.0 [id number] Kymberly pelaez MD Main Office [address] [facility] [address] [facility] [place] [address] 04/11/2016 10:23:42 04/11/2016 10:57:47 Hypothyroidism 99302985 E03.9 on meds, feels well on this dose Malignant neoplasm of corpus uteri, excluding isthmus 169323193 C54.9 hx of surgery, doing well, followed in [place] History of malignant neoplasm of breast 429310323 Z85.3 up to date on followup, sees Dr Janice Salinas and utd on mammogram Osteoporosis 35857592 M8 1.0 pt with bone loss,med changed for osteoporos is, followed by Dr Leal Polyp of colon 82833709 K63.5 pt has been getting colonoscoy every year, will see GI, may go to every 3 years. [id number] Kirill joshi MD Main Office [address] [facility] [address] [facility] [place] [address] 06/19/2016 16:19:21 06/19/2016 16:37:41 Influenza vaccine needed 7799622837 106 Z23 [id number] Kymberly pelaez MD Main Office [address] [facility] [address] [facility] [place] [address] 10/11/2016 09:02:41 10/11/2016 09:40:58 Adult health examination 951925768 Z00.00 pt is utd with all her screening, keep healthy and active. mammo is utd and sees Dr Janice Salinas for a breast exam Hypothyroidism 76942701 E03.9 on meds, feels well on this dose, check labs since last TSH a bit elevated History of malignant neoplasm of breast 824581789 Z85.3 up to date on followup, sees Dr Janice Salinas and utd on mammogram Osteoporosis 20898934 M8 1.0 pt with bone loss,med changed for osteoporos is, followed by Dr Leal Polyp of colon 20258123 K63.5 pt has been getting colonoscop y every year, will see GI, may go to every 3 years. History of malignant neoplasm of uterine body 037354013 Z85.42 doing well, recent visit in [place] Anemia 737809926 D64.9 pt is on iron, it is followed by GI and gets levels checked by Dr Mejía, sees him every 6 months. Lymphedema of lower extremity 593787074 I89.0 left leg with swelling, see below Pain in calf 113570609 M 79.669 left calf swelling, occasional discomfort , check US to rule out DVT [id number] Adonis Dale MD Main Office [address] [facility] [address] [place] [address] 05/24/2017 09:22:25 05/24/2017 09:31:24 Influenza vaccine needed 1148784005 106 Z23 [id number] Vazquez Osborn MD Main Office [address] [facility] [address] [place] [address] 09/14/2017 10:48:52 09/14/2017 11:50:41 Temporomandibular joint disorder 71489558 M26.621 I advised ibuprofen 600-800 three times a day. [id number] Kymberly pelaez MD Main Office [address] [facility] [address] [place] [address] 10/14/2017 10:18:33 10/14/2017 11:25:53 Adult health examination 660457674 Z00.00 pt is utd with all her screening, keep healthy and active. mammo is utd and sees Dr Janice Salinas for a breast exam Hypothyroidism 95174865 E03.9 on thyroid meds, nl level in 10/03, continue meds History of malignant neoplasm of breast 821563505 Z85.3 up to date on followup, sees Dr Janice Salinas and utd on mammogram, nl breast exam today History of right mastectomy 407108721 Z90.11 nl exam today Osteoporosis 29400749 M8 1.0 Dr Alex diamond vit D level is on high side, will change to QO week when summer is here History of malignant neoplasm of uterine body 259444520 Z85.42 doing well, recent visit in [place] Lymphedema of lower extremity 430134534 I89.0 left leg with swelling, see below if uses hctz more than 5 times a week check lytes in about a month [id number] Kymberly pelaez MD Main Office [address] [facility] [address] [place] [address] 04/09/2018 09:26:39 04/09/2018 10:29:07 Hypothyroidism 09818645 E03.9 on thyroid meds, continue meds check level Lymphedema 438741247 I89 .0 left leg, since surgery for uterine cancer, also had radiation tx, ? scarring interrupti ng lymph flow, no concern for DVT, will change to prn lasix and stop hctz, if worsens I offered pt a vascular consult History of malignant neoplasm of uterine body 051261327 Z85.42 doing well, recent visit in [place] History of malignant neoplasm of breast 930343123 Z85.3 up to date on followup, sees Dr Janice Salinas Radiation proctitis 2357 85966 K62.7 low grade rectal bleeding, on irone bid Anemia due to unknown mechanism 67158211 D64.9 chronic blood loss due to radiation proctitis, will remain on iron bid and will get colonscopy in 2019 [id number] Vazquez Osborn MD Main Office [address] [place] [address] 06/17/2018 09:35:13 06/17/2018 09:54:21 Influenza vaccine needed 7054733366 106 Z23 [id number] Kymberly pelaez MD Main Office [address] [facility] [address] [place] [address] 10/16/2018 08:33:08 10/16/2018 09:35:18 Adult health examination 059553125 Z00.00 pt is utd with all her screening, mammogram is arranged and will get colonoscop y keep healthy and active. sees Dr Janice Salinas for a breast exam Advance di rective discussed with patient 688115708 Z71.89 discussed with pt, she stated her is her proxy and she has discussed these issues with her and children, will complete MOLST form and return to tn Screening for malignant neoplasm of colon 061447888 Z12.11 pt to arrange Screening for malignant neoplasm of breast 538464056 Z12.39 has appt for mammo History of malignant neoplasm of breast 131022280 Z85.3 up to date on followup, sees Dr Janice Salinas History of malignant neoplasm of uterine body 303915320 Z85.42 doing well, recent visit in [place] Hypothyroidism 39785466 E03.9 on thyroid meds, continue meds check level Lymphedema of lower extremity 500614272 I89.0 uses prn lasix it helps [id number] Kymberly pelaez MD Main Office [address] [facility] [address] [facility] [place] [address] 12/31/2018 13:55:53 12/31/2018 14:49:51 Left flank pain 892485702 R10.9 seems muscular, low back. neg urine Muscle pain 94295882 M79 .10 left lower back pain due to muscle. use heat stretching NSAIDS if tolerated [id number] Kymberly pelaez MD Main Office [address] [facility] [address] [facility] [place] [address] 04/08/2019 09:02:37 04/08/2019 10:10:14 Hypothyroidism 07722634 E03.9 med dose recently decreased due to suppressed TSH lowered to 112 mcg and recheck lab in 6 weeks History of malignant neoplasm of uterine body 632180971 Z85.42 doing well, followed in [place] History of malignant neoplasm of breast 882377320 Z85.3 up to date on followup, sees Dr Janice Salinas [id number] Kymberly pelaez MD Main Office [address] [facility] [address] [place] [address] 10/15/2019 11:18:38 10/15/2019 11:44:43 Hypothyroidism 20117845 E03.9 dose changed after last check check lab today History of malignant neoplasm of breast 983942390 Z85.3 up to date on followup, sees Dr Janice Salinas History of malignant neoplasm of uterine body 062922132 Z85.42 doing well, followed in [place] History of right mastectomy 795932965 Z90.11 nl exam today Lymphedema of lower extremity 290346381 I89.0 uses prn lasix it helps check K Iron defic iency anemia 93272410 D50.9 check iron level [id number] Kymberly pelaez MD [facility] [address] [facility] [address] [place] [address] 02/11/2020 11:36:58 02/11/2020 13:56:01 Adult health examination 824869053 Z00.00 pt is utd with all her screening, mammogram is arranged for the summer keep healthy and active. sees Dr Janice Salinas for a breast exam Screening for malignant neoplasm of breast 142527607 Z12.39 has appt for mammo Hypothyroidism 65252036 E03.9 continue meds History of malignant neoplasm of uterine body 417450571 Z85.42 doing well, followed in [place] History of malignant neoplasm of breast 318988982 Z85.3 up to date on followup, sees Dr Janice Salinas Muscle pain 87847584 M79 .10 shoulders and hips, sore/achey . will check labs looking for PMR. if positive will tx, for now more stretching Lymphedema of lower extremity 092379115 I89.0 uses prn lasix it helps check [place] [id number] Kymberly pelaez MD Main Office [address] [place] [address] 02/25/2020 15:32:36 02/29/2020 12:12:40 Pain of left thigh 3972942843 07932 M79.652 Check US to rule out DVT. If negative would try alternatin g ice and heat otc pain relievers tid through the weekend and rest. Call saturday with update. If not better consider PT and xray. [id number] Kymberly pelaez MD Main Office [address] [place], [place] [address] [place] [address] 03/21/2020 10:56:41 03/22/2020 09:02:12 [id number] Kymberly pelaez MD Main Office [address] [place], [place] [address] [address] 03/23/2020 14:18:21 03/23/2020 15:58:10 Pain in left lower limb 458790028 M79.605 Persistent thigh pain, neg xray hip and femur, neg ultrasound , in PT now for possible radicular pain will continue with PT, have re evaluation of pain with PSS, ordered MRI, if not better consider bone scan due to cancer history with leg pain Lumbosacra l radiculitis 02518278 M54.17 MRI to assess if pain referred from a disc in her back. Dr Frank sees pt as well [id number] Kymberly pelaez MD Main Office [address] [address] [place] [address] 2020 09:52:53 2020 10:20:29 Administration of pneumococcal vaccine 44705619 Z23 [id number] Kymberly pelaez MD [facility] [address] [address] [place] [address] 04/29/2020 12:53:24 04/29/2020 15:45:40 Fracture of acetabulum 48786403 S32.401A saw ortho, is doing PT and followed by ortho, using the walker. thought due to osteoporos is and hx of radiation tx for cancer in that area Skin lesion 45758697 L98 .9 back of neck, sounds like a pimple or birte, no cellulitis , tx with topical abx in day open to air at night [id number] Vazquez Osborn MD Main Office [address] [address] [place] [address] 05/31/2020 14:50:53 05/31/2020 16:00:49 Influenza vaccine needed 5078156365 106 Z23 Edema of l ower extremity 629186011 R60.0 Her increasing edema may be secondary to decreased activity since her hip fracture a couple of months ago. Will double her lasix and check labs in a couple of weeks. Also advised elevation and compressio n stockings. She will call next week if no improvemen t. History of malignant neoplasm of uterine body 624868030 Z85.42 Closed fra cture of hip 153175765 S72.001A [id number] Vazquez Osborn MD [address] [address] [place] [address] 06/13/2020 08:54:18 06/13/2020 10:20:46 Cough 93931762 R05 No need for additional meds or testing at this time since she is improving. She will call if this persists or she develops new symptoms. [id number] Vazquez Osborn MD Main Office [address] [address] [place] [address] 07/26/2020 12:51:34 07/26/2020 13:45:51 Edema of lower extremity 554293671 R60.0 Her edema improved on the increased dose of lasix from 20 to 40 mg a couple of months ago. She lost 9 lbs since that time or about a pound a week. She comes in today c/o increased edema over the last 4-5 days. She denies any pain or SOB. No foods high in salt. No new meds. Activity level has been the same. She will take lasix 80 mg for 5 days and then go back to 40 mg. [id number] Kymberly pelaez MD [facility] [address] [facility] 207 [facility] [place] [address] 08/08/2020 09:15:31 08/08/2020 15:16:16 Lymphedema of lower extremity 908534992 I89.0 worsening problem recently, most likely multifacto rial from hx of pelvic irradiatio n, less active due to hip pain and venous insuffienc y, pt to stay on lasix 40mg a day, will add KCL 20meq bid as K was 3.5, refer to vascular and get an echo due to hx of chemothera py for cancers. rule out cardiomyop athy History of fracture 3910 83088 Z87.81 pelvis insuffienc y fracture, dx in 03/05. was better and. now with pain in her upper thigh. sees ortho in a week, ? another fxt vs arthritis pain? Pain of hip region 66558 002 M25.559 see above. very uncomforta ble, needs pain med, use sparingly. reevaluate in one week Hypokalemia 40261394 E87 .6 K 3.5. on lasix higher dose [id number] Kymberly pelaez MD [facility] [address] [facility] 207 [facility] [place] [address] 08/22/2020 08:29:31 08/22/2020 12:52:53 Lymphedema of lower extremity 436462825 I89.0 mild could not complete echo, no hx of cardiac issues. elevate and watch salts Osteoporosis 40867840 M8 1.0 refill vit D History of malignant neoplasm of breast 886940813 Z85.3 up to date on followup, sees Dr Janice Salinas History of malignant neoplasm of uterine body 120387735 Z85.42 doing well, followed in [place] Pain of le ft hip joint 5361199475 07840 M25.552 see hx, will get replacemen t in one week in [place], pt is seeing them tomorrow, will request all preop labs and ekg and anything else needed from them, if needs us to fill in anything preop needs to let me know carmelo as surgery is in one week from today [id number] Kymberly pelaez MD Main Office [address] [facility] [address] [place] [address] 09/02/2020 07:24:59 09/02/2020 16:24:53 [id number] Kymberly pelaez MD Main Office [address] [address] [place] [address] 10/21/2020 14:56:04 10/21/2020 15:57:05 Lymphedema of lower extremity 996543446 I89.0 severe LLE edema, saw Dr Perez, neg US for DVt, [facility], suggested asking about wraps, elevate, keep to lasix 40mg check lytes since some days took 80mg lasix History of total hip arthroplasty 2393664645 06 Z96.642 see HPI complicate d surgery coming along well, pleased she did it Hypothyroidism 46721981 E03.9 continue meds [id number] Kymberly pelaez MD Main Office [address] [facility] [address] [place] [address] 02/23/2021 09:05:01 02/23/2021 09:50:05 Adult health examination 138502820 Z00.00 pt is utd with all her screening, sees Dr Janice Salinas for a breast exam Hypothyroidism 69525464 E03.9 continue meds check level Screening for malignant neoplasm of breast 048323457 Z12.39 has appt for mammo History of malignant neoplasm of breast 300104887 Z85.3 up to date on followup, sees Dr Janice Salinas History of malignant neoplasm of uterine body 774692109 Z85.42 doing well, followed in [place] History of right mastectomy 007397416 Z90.11 nl exam today History of total hip arthroplasty 2058930809 06 Z96.642 see HPI complicate d surgery coming along well, pleased she did it Lymphedema of lower extremity 778936113 I89.0 [id number] Kymberly pelaez MD Main Office [address] [place] [address] 11/15/2021 14:51:06 11/15/2021 15:26:02 Hypothyroidism 41181777 E03.9 continue meds check level Lymphedema of lower extremity 510543752 I89.0 chronic, from disruption of lymphatics for uterine cancer treatment. continue lasix, stockings and potassium History of malignant neoplasm of uterine body 439525824 Z85.42 doing well, followed in [place] History of malignant neoplasm of breast 202762326 Z85.3 up to date on followup, sees Dr Janice Salinas Hypercholesterolemia 136 75353 E78.00 check fasting History of polyp of colon 190116411 Z86.010 see HPI pt is interested in repeating colonoscop y with a better prep with Dr Fernández [id number] Adonis Dale MD [facility] [address] [place] [address] 03/06/2022 10:08:23 03/06/2022 15:40:13 Pneumonia 864694918 J18.9 recommend probiotics while on abx Counseling 871064166 Z71 .9 Health advice, education or counseling done for COVID 19 pt has tested negative to covid twice Dyspnea 243991494 R06.00 [id number] Vazquez Osborn MD Main Office [address] [address] [place] [address] 03/13/2022 13:59:25 03/13/2022 14:42:31 Cough 80838842 R05.9 Continued cough despite tx with zpak, will check CXR, prednisone burst x 5 days. Benzonatat e as needed. will also rx levofloxac in x 7 days. hydration, rest, continue inhaler use as needed for wheezing/ cough. Pneumonia 266201637 J18. 9 treated with zpak but sx continue. [id number] Adonis Dale MD Main Office [address] [place] [address] 08/06/2022 13:32:16 08/06/2022 14:49:56 Lymphedema of lower extremity 391817171 I89.0 Pain in le ft lower limb 611889903 M79.605 ? related to orthopedic vs vascular issue. Will start with DVT rule out and if not fruitful in rendering a diagnosis consider arterial assessment possibly pelvic imaging given her malignancy history. Edema of l ower extremity 509510191 R60.0 If positive for DVT will start NOAC and depending on extent consider referring to ED. Pt advised to go to ED with dizziness, CP, palpitatio ns or SOB [id number] SMITA SU MD Main Office [address] [facility] [place] [address] 08/21/2022 09:06:32 08/21/2022 10:06:34 Pain in left lower limb 480751201 M79.605 - pain is located on the left gluteal region and very deep, not felt on palpation> feel that pain that may be coming more from the back and not the actual hip- pt was seen by orthopedic s who ruled out any problems with patient's hardware- DVT was r/out by ultrasound - pt currently completed steroids which provided relief- pt also placed on course of antibiotic s (doxycylin e) due to elevated WBC count- awaiting MRI of lower extremity- plan: will repeat cbc and check WBC count -> if WBC is normal will start another course of prednisone as it helped with the pain. If WBC count is not WNL will not send another medication > pt was also referred to a physiatry> will check inflammato ry markersame ndment: most recent CBC showed normal WBC count, therefore patient placed on another prednisone taper Edema of l ower extremity 572353295 R60.0 - acute on chronic> pt has chronic lymphedema - d-dimer was elevated therefore U/S to r/out DVT was done, negative- pro-BNP was negative- currently unsure of the etiology of what may be causing the edema> pt takes furosemide PRN -> as it causes increased urination pt needs to be home while taking medication . If patient knows she is going out she wont take the medication . If patient takes the medication for several days consecutiv missy it will reduce the edema.- will continue to evaluate cause of the increased lymphedema - pt has MRI for further evaluation Lymphedema of lower extremity 489651870 I89.0 Leukocytosis 522925994 D 72.829 - WBC from 08/07 was 14.1> WBC from today 08/21 is normal (CBC was repeated)- possibly due to recent steroid use- platelet count is also now WNL- will continue to monitor Anemia due to unknown mechanism 01629722 D64.9 - recent colonoscop y in 11/2021 was WNL- pt has been progressiv missy decreasing Hb 10.1>10.3> 9.9 (today 08/21)- pt is currently asymptomat ic> no reported causes of bleeding noted- iron studies showing the sign of starting EDILBERTO- iron do a trial of iron for 3 month and repeat iron profile- ED precaution s given Low back pain 352975445 M54.50 - believe patient pain in the lower extremity is coming more from the back than the hip- pt was referred to physiatry for further evaluation - please note patient had similar symptoms back in 2019 and had a MRI so the lumbar spine done [id number] SMITA SU MD Main Office [address] [facility] [address] [facility] [place] [address] 09/24/2022 13:23:55 09/24/2022 14:15:05 Pain in left lower limb 990339513 M79.605 - pain is located on the left gluteal region and very deep, not felt on palpation> feel that pain that may be coming more from the back and not the actual hip- pt was seen by orthopedic s in [place] who ruled out any problems with patient's hardware- DVT was r/out by ultrasound - pt currently completed steroids which provided relief- pt also placed on course of antibiotic s (doxycylin e) due to elevated WBC count- MRI of lower extremity showing minimally displaced left superior and inferior inferior pubic ramus fracture> unsure if this really the cause of patient's pain as pain in located left gluteal region which is not in same location as the pubic ramus- pt was seen by orthopedic s twice during this time and had several scans done, will try to obtain results> location of pain still unknown.> pt mentions having all imaging studies done and orthopedic s unsure of were pain is coming from- pt does mention some relief with the prednisone however pt has currently had 2 course the medication - can continue with tramadol in AM and afternoon and start gabapentin 300mg in the evening. Edema of l ower extremity 569812954 R60.0 - acute on chronic> pt has chronic lymphedema - d-dimer was elevated therefore U/S to r/out DVT was done, negative- pro-BNP was negative- currently unsure of the etiology of what may be causing the edema> pt takes furosemide PRN -> as it causes increased urination pt needs to be home while taking medication . If patient knows she is going out she wont take the medication . If patient takes the medication for several days consecutiv missy it will reduce the edema.- will continue to evaluate cause of the increased lower extremity edema> will rule out any vascular causes- possible that caused by worsening lymphedema Lymphedema of lower extremity 125997462 I89.0 - pt has a history of lymphedema on the left side after hip replacemen t- pt referred to previous therapist to who helped patient in the past Leukocytosis 938470168 D 72.829 - now resolved, WBC on 08/21 was 9.4 (decrease from 14.1)- possibly due to recent steroid use- platelet count is also now WNL- will continue to monitor Anemia due to unknown mechanism 99639040 D64.9 - recent colonoscop y in 11/2021 was WNL- pt has been progressiv missy decreasing Hb 10.1>10.3> 9.9 (08/21)- pt is currently asymptomat ic> no reported causes of bleeding noted- iron studies showing the sign of starting EDILBERTO- iron do a trial of iron and repeat iron profile, orders placed- ED precaution s given Low back pain 411864514 M54.50 - believe patient pain in the lower extremity is coming more from the back than the hip- pt was referred to physiatry for further evaluation - please note patient had similar symptoms back in 2019 and had a MRI so the lumbar spine done [id number] SMITA SU MD Main Office [address] [facility] 207 [facility] [place] [address] 10/19/2022 10:41:12 10/19/2022 11:16:17 Pressure injury of sacral region of back 971618333 L89.159 - well healing on the left buttock- right buttock: 1cm by 2cm stage III- ordered VNA services to help with wound care- pt advised to change positions every two hours- pt advised to increase her nutrition to help with the healing process (pt does not eat very much and does not take MMV). Pt advised to start taking ensure [id number] SMITA SU MD Main Office [address] [facility] [address] [place] [address] 11/22/2022 10:51:39 11/22/2022 11:30:11 Pain in left lower limb 863357686 M79.605 - pain is located on the left gluteal region and very deep, not felt on palpation- pt was seen by orthopedic s in [place] again on 09/24 who stated there was a fracture near her left hip were there is the replacemen t> will follow-up in January 2023- DVT was r/out by ultrasound - pt was given 2 rounds of steroids with improvemen t on her pain- MRI of lower extremity showing minimally displaced left superior and inferior inferior pubic ramus fracture- can continue with tramadol as needed> can continue with ibuprofen and tylenol as needed Edema of l ower extremity 458298958 R60.0 - acute on chronic> pt has chronic lymphedema - d-dimer was elevated therefore U/S to r/out DVT was done, negative- pro-BNP was negative- pt was seen by vascular surgery on 10/31: edema not likely to be from venous etiology- c/w lymphedema clinic as it is providing improvemen t Lymphedema of lower extremity 713749687 I89.0 - pt has a history of lymphedema on the left side after hip replacemen t- pt is currently undergoing OT a the lymphedema center- pt therapist requesting the compressio n stockings to be ordered for pateint, ordered Anemia due to unknown mechanism 57821682 D64.9 - recent colonoscop y in 11/2021 was WNL- pt has been progressiv missy decreasing Hb 10.1>10.3> 9.9>9.1 (11/19)- pt is currently asymptomat ic- does have intermitte nt episodes of bleeding per rectum due to radiation cystitis- c/w with iron supplement ation at this time- pt was referred to hematology Pressure i njury of sacral region of back 119609215 L89.159 - healed both on the right and and left buttock- pt advised to change positions every two hours- pt advised to increase her nutrition to help with the healing process (pt does not eat very much and does not take MMV). Pt advised to start taking ensure Low blood pressure 36255 003 I95.9 - BP today is 98/58, similar at previous visit- will decrease furosemide from 40mg to 20mg due to low blood pressure- will continue to monitor [id number] Kymberly pelaez MD Main Office [address] [facility] [address] [place] [address] 01/18/2023 14:02:14 01/18/2023 14:44:10 Adult health examination 522116454 Z00.00 colonoscop y is utd, mammogram is coming up , sees Dr Janice Salinas for a breast exam History of malignant neoplasm of breast 773290601 Z85.3 up to date on followup, sees Dr Janice Salinas History of malignant neoplasm of uterine body 777062119 Z85.42 doing well, followed in [place] History of right mastectomy 198751876 Z90.11 nl exam today Hypothyroidism 72893575 E03.9 continue meds check level Lymphedema of lower extremity 980267255 I89.0 chronic, from disruption of lymphatics for uterine cancer treatment. continue lasix, stockings and potassium lymphedema is quite symptomati c. had a vascular procedure with Dr Hudson Anemia 599435169 D64.9 pt is on iron, will see hematology for a lower hgb, she has some blood in stool due to radiation proctitis (seen on colonoscop y 12/05 Dr Fernández) continue iron and see hematology Pain of le ft hip joint 2460839191 86762 M25.552 had replacemen t, having pain, just was in [place] yesterday, they will send note and may want an MRI of back as per pt, need more info [id number] SMITA SU MD Main Office [address] [facility] [address] [place] [address] 03/27/2023 08:25:37 03/27/2023 11:42:55 [id number] Adnois Dale MD Main Office [address] [facility] [address] [place] [address] 04/05/2023 13:32:56 04/05/2023 14:30:29 Aseptic necrosis of bone of hip 077343028 M87.059 Set to complete CTX today and PICC line to be removed by VNA. History of total hip arthroplasty 9364539369 06 Z96.642 Following with ortho, pain well controlled . Will prescribe DME needed to help with the recovery process. Acquired u nequal leg length 279529377 M21.752 Petechiae of skin 162763 004 R23.3 Localized to hands/dist al UE. Likely related to meds and recent increase reliance on upper extremitie s to function. [id number] SMITA SU MD Main Office [address] [facility] [address] [place] [address] 04/19/2023 11:20:46 04/19/2023 11:50:14 Lymphedema of lower extremity 208364498 I89.0 - pt has a history of lymphedema on the left side after hip replacemen t- pt is currently undergoing OT a the lymphedema center History of total hip arthroplasty 2507311821 06 Z96.642 Pain of bi lateral hip joints 4087766681 7099318 M25.552 - s/p removal left hip replacemen t and modified girdleston e procedure of the left hip- pt weaned off dilaudid- pt advised to continue with ibuprofen and tylenol as needed- if pain is not well tolerated after patient is off dilaudid will restart tramadol BID- pt advised to continue PT and OT [id number] SMITA SU MD Main Office [address] [facility] [address] [facility] [address] 05/23/2023 15:08:10 05/23/2023 15:49:48 History of total hip arthroplasty 1534825065 06 Z96.642 - done on 02/21/2023- pt will follow up with surgery in June 2023 Lymphedema of lower extremity 499013735 I89.0 - pt has a history of lymphedema on the left side after hip replacemen t- OT a the lymphedema center is currently on pause, will resume once patient is cleared from surgery- continue with lassix 20mg QD- pt was seen by vascular surgery on 10/31: edema not likely to be from venous etiology Anemia due to unknown mechanism 73106612 D64.9 - recent colonoscop y in 11/2021 was WNL- pt has been progressiv missy decreasing Hb 10.1>10.3> 9.9>9.1 (11/19)- pt is currently asymptomat ic- does have intermitte nt episodes of bleeding per rectum due to radiation cystitis- c/w with iron supplement ation at this time- pt was referred to hematology however was able to make appoitment due to recent surgery and rehab stay Low blood pressure 04820 003 I95.9 - BP today is 120/65- c/w furosemide 20mg QD Hypothyroidism 66047039 E03.9 - c/w levothyrox ine 112mcg QD- ordered repeat TSH levels Vitamin D deficiency 347 28024 E55.9 - pt has been on weekly supplement ation will check levels Pain of le ft hip joint 7369149440 95010 M25.552 - s/p removal left hip replacemen t and modified girdleston e procedure of the left hip- pt weaned off dilaudid- pt advised to continue with ibuprofen and tylenol as needed- pt does have tramadol if needed for the pain, will use sparingly- pt advised to continue PT> pt completed OT [id number] SMITA SU MD Main Office [address] [facility] [address] [place] [address], [place] [address] 08/29/2023 11:31:09 08/29/2023 12:10:08 Pain of left hip joint 2580591806 35396 M25.552 - s/p removal left hip replacemen t and modified girdleston e procedure of the left hip- pt weaned off dilaudid- pt advised to continue with ibuprofen and tylenol as needed- stopped tramadol as pt is not taking medication - will continue with baclofen 5mg as needed> pt is currently under good control- pt completed PT and OT Lymphedema of lower extremity 800833732 I89.0 - pt has a history of lymphedema on the left side after hip replacemen t- OT a the lymphedema center has restarted- can hold assix 20mg QD as it is not providing any relief- pt was seen by vascular surgery on 10/31: edema not likely to be from venous etiology Anemia due to unknown mechanism 50256239 D64.9 - recent colonoscop y in 11/2021 was WNL- pt has been progressiv missy decreasing Hb 10.1>10.3> 9.9>9.1>10 .4- pt is currently asymptomat ic- does have intermitte nt episodes of bleeding per rectum due to radiation cystitis- c/w with iron supplement ation at this time- pt was referred to hematology however was able to make appoitment due to recent surgery and rehab stay Low blood pressure 76846 003 I95.9 - BP today is 112/58- hold furosemide 20mg QD Hypothyroidism 38374547 E03.9 - c/w levothyrox ine 112mcg QD- thyroid levels are stable Vitamin D deficiency 347 03977 E55.9 - pt has been on weekly supplement ation will check levels Onychomycosis 197916930 B35.1 - located on right foot, 1st and 2nd digit and left foot on 1st digit- pt provided with nail solution [id number] SMITA SU MD Main Office [address] [facility] [address] [facility] [place] [address] 11/28/2023 10:40:26 11/28/2023 11:01:58 Pain of left hip joint 5674593729 98517 M25.552 - s/p removal left hip replacemen t and modified girdleston e procedure of the left hip- pt weaned off dilaudid- pt advised to continue with ibuprofen and tylenol as needed- pt taking tramadol 50mg as needed- stopped baclofen- pt completed PT and OT Lymphedema of lower extremity 427696218 I89.0 - pt has a history of lymphedema on the left side after hip replacemen t- OT a the lymphedema center has restarted- stopped lassix- pt was seen by vascular surgery on 10/31: edema not likely to be from venous etiology Anemia due to unknown mechanism 57708174 D64.9 - recent colonoscop y in 11/2021 was WNL- pt has been progressiv missy decreasing Hb 10.1>10.3> 9.9>9.1>10 .4>10.5- pt is currently asymptomat ic- does have intermitte nt episodes of bleeding per rectum due to radiation cystitis- c/w with iron supplement ation at this time- pt was referred to hematology however was able to make appoitment due to recent surgery and rehab stay Low blood pressure 39006 003 I95.9 - BP today is 112/58- hold furosemide 20mg QD Hypothyroidism 89838563 E03.9 - c/w levothyrox ine 112mcg QD- thyroid levels are stable Vitamin D deficiency 347 03381 E55.9 - pt has been on weekly supplement ation will check levels Onychomycosis 816689825 B35.1 - located on right foot, 1st and 2nd digit and left foot on 1st digit- pt provided with nail solution -> did not work- pt has appoitment with Dr. Rojas next week Deep venou s thrombosis of lower extremity 009268188 I82.409 - was diagnosed by Dr. Hudson's office, completed treatment- provoked [id number] Adonis Dale MD [facility] [address] [facility] 207 [facility] [place] [address] 02/11/2024 12:02:39 02/11/2024 14:43:28 Pain of left hip joint 2333606492 84576 M25.552 s/p THR 2020 - seen at ER on saturday - negative w/u, gave lidocaine patch - no help, but pt primarily c/o spasm - will give prn m relaxerpen ding see ortho in [place] on 6.11also, rec increase tylenol 500mg qd to 1-2 tabs po tid, cont prn tramadol (infreq uses, lately no help c spasm --- do not take c prn m relaxer) [id number] SMITA SU MD Main Office [address] [facility] [address] [facility] [place] [address] 03/02/2024 10:06:23 03/02/2024 10:54:35 Adult health examination 969660251 Z00.00 Health Maintenanc e FemaleA) Patient was counseled on healthy diet, exercise and nutrition. BMI of 25.4 B) ScreeningL ast Mammogram: start at age 50 stop at 74Date: 07/04/2023 Result: BIRADS-1Ne xt: 06/2024 Last Pap smear: aged out Last Colonoscop y: start at age 45-75Date: 11/22/2021e sult: proctitisN ext: aged out Last DEXA scan:Date: 04/05/2023R esult: osteoporos isNext: follows with endo C) Vaccines:I nfluenza: 06/13/2023T dAP: 10/14/2017Z marcial: 07/04/2020 , 10/01/2019P CV13: 10/07/2014P PSV23: 08/28/2010 , 2020C OVID: 10/20/2020, 11/10/2020, 06/10/2021, 12/29/2021, 06/17/2022, 06/13/2023 D) Routine blood work orderedE) Updated patient's history RTC in one year for annual exam or sooner if any acute complaints Advance di rective discussed with patient 898956413 Z71.89 - discussed MOLTS- HCP on file History of malignant neoplasm of breast 071116510 Z85.3 - currently in remission Hypothyroidism 46985146 E03.9 - c/w levothyrox ine 112mcg QD- thyroid levels are stable Osteoporosis [id number] M8 1.0 - taking prolia- repeat bone density in 2024 Lymphedema of lower extremity [id number] I89.0 - pt has a history of lymphedema on the left side after hip replacemen t- completed OT a the lymphedema center- stopped lassix- pt does wear her wraps and has a pump- pt was seen by vascular surgery on 10/31: edema not likely to be from venous etiology History of total hip arthroplasty [id number] 06 Z96.642 - done on 02/21/2023- pt will follow up with surgery in June 2023- pt continues to have pain the hip, is following at [facility]> think pain may be from a infection however ID does not agree- c/w tramadol and cyclobenza karo as needed Anemia due to unknown mechanism [id number] D64.9 - recent colonoscop y in 11/2021 was WNL- pt has been progressiv missy decreasing Hb 10.1>10.3> 9.9>9.1>10 .4>10.5- pt is currently asymptomat ic- does have intermitte nt episodes of bleeding per rectum due to radiation cystitis- c/w with iron supplement ation at this time- pt was referred to hematology however was unable to make appoitment due to recent surgery and rehab stay Pain of le ft hip joint [id number] 68890 M25.552 - s/p removal left hip replacemen t and modified girdleston e procedure of the left hip- pt weaned off dilaudid- pt advised to continue with ibuprofen and tylenol as needed- pt taking tramadol 50mg as needed- stopped baclofen- pt completed PT and OT Fatigue [id number] R53.83 Z00.00 Hyperlipidemia 15736976 E78.5 Z00.00 FASTING [id number] SMITA SU MD Main Office [address] [facility] [address] [facility] [place] [address] 08/11/2024 11:20:58 08/11/2024 11:56:25 History of malignant neoplasm of breast 547013096 Z85.3 - currently in remission Hypothyroidism 94263614 E03.9 - increased from levothyrox ine 112mcg QD to 125mcg QD- will recheck levels Osteoporosis 21694739 M8 1.0 - taking prolia (is doing every 6 months)- repeat bone density in 2024 Lymphedema of lower extremity 203128874 I89.0 - pt has a history of lymphedema on the left side after hip replacemen t- completed OT a the lymphedema center- stopped lassix- pt does wear her wraps and has a pump- pt was seen by vascular surgery on 10/31: edema not likely to be from venous etiology History of total hip arthroplasty [id number] 06 Z96.642 - done on 02/21/2023- pt orthopedic s in [place] has discharged her as no other interventi on can be done for the hip- c/w tramadol and cyclobenza karo as needed Anemia due to unknown mechanism 25778755 D64.9 - improved- recent colonoscop y in 11/2021 was WNL- pt has been progressiv missy decreasing Hb 10.1>10.3> 9.9>9.1>10 .4>10.5>11 .4- pt is currently asymptomat ic- does have intermitte nt episodes of bleeding per rectum due to radiation cystitis- c/w with iron supplement ation at this time- pt was referred to hematology however was unable to make appoitment due to recent surgery and rehab stay Pain of le ft hip joint [id number] M25.552 - s/p removal left hip replacemen t and modified girdleston e procedure of the left hip- pt weaned off dilaudid- pt advised to continue with ibuprofen and tylenol as needed- pt taking tramadol 50mg as needed- stopped baclofen- pt completed PT and OT- pt does need a home health aid to help with dressing in the AM. also if is not around will need help to be placed in bed at night Osteonecrosis of hip 444 908211 M87.152 Essential tremor 0996162 09 G25.0 - worse on the right side- ordered blood work- to monitor, may consider starting metoprolol [id number] SMITA SU MD Main Office [address] [facility] [address] [facility] [place] [address] 12/15/2024 13:56:46 12/15/2024 14:30:28 Hypothyroidism 43261279 E03.9 - abnormal- TSH-0.236 and free T4-2.09- reduced TSH from 125mcg to 112mcg- ordered repeat blood work Anemia due to unknown mechanism 96224536 D64.9 - resolved- recent colonoscop y in 11/2021 was WNL- pt has been progressiv missy decreasing Hb 10.1>10.3> 9.9>9.1>10 .4>10.5>11 .4>12.8- pt is currently asymptomat ic- does have intermitte nt episodes of bleeding per rectum due to radiation cystitis- stopped with iron supplement ation at this time- will recheck CBC and iron levels off iron supplement ation Essential tremor 1206248 09 G25.0 - worse on the right side- to monitor, may consider starting metoprolol Vitamin D deficiency 347 30412 E55.9 - pt taking an OTC vitamin D- most recent levels 29.5 Aseptic ne crosis of bone of hip 545091471 M87.059 - chronic problem causing left sided hip pain- does follow with specialist in [place]- c/w tylenol daily- c/w tramadol 50mg as needed History of total hip arthroplasty 8630279586 06 Z96.642 - done on 02/21/2023- pt orthopedic s in [place] has discharged her as no other interventi on can be done for the hip- c/w tramadol and cyclobenza karo as needed At [facility] risk for falls 508135592 Z91.81 - it was noted today that patient needs assistance to stand even with help of walker- has very little upper body strength- will consider home physical therapy as patient cannot travel to facility [id number] SMITA SU MD Main Office [address] [facility] [place] [id number] 01/15/2025 15:19:42 01/15/2025 16:18:36 Grief finding [id number] F43.21 - MACARENA-7 score 11 and PHQ-9 score 13- pt recently lost her and she is struggling with this- after discussion patient prefers to try lorazepam instead of hydrozine- if no improvemen t in one month will start escitalopr am- pt is aware not to take lorazepam with tramadol Aseptic ne crosis of bone of hip 301132970 M87.059 - chronic problem causing left sided hip pain- does follow with specialist in [place]- c/w tylenol daily- c/w tramadol 50mg as needed Health Concerns Section Related Observation LastModified by Organization Detai ls LastModified Time None Recorded Concern Status LastModified by Organization Details LastModified Time None Recorded Advance Directives Directive N: Payers Encounter Date Sequence Insurance Name Policy Number Policy Pepe Covered Member ID Pepe Member ID Guarantor Name 02/11/2024 1 [place] [employer] Anayeli Mcclelland [id number] Anayeli Owusu Stas 02/11/2024 2 [employer] - [employer] [id number] Abraham P Stas [id number] Anayeli Owusu Stas 03/02/2024 1 [place] [employer] Anayeli Mcclelland [id number] Anayeli Owusu Stas 03/02/2024 2 [employer] - [employer] [id number] Abraham P Stas [id number] Anayeli Owusu Stas 08/11/2024 1 [place] [employer] Anayeli Mcclelland [id number] Anayeli Owusu Stas 08/11/2024 2 [employer] - [employer] [id number] Abraham P Stas [id number] Anayeli Owusu Stas 12/15/2024 1 [place] [employer] Anayeli Mcclelland [id number] Anayeli Mcclelland 12/15/2024 2 [facility] [id number] Abraham Mcclelland [id number] Anayeli Mcclelland 01/15/2025 1 [place]: [facility] Anayeli Mcclelland [id number] 08 Anayeli Mcclelland 01/15/2025 2 [facility] [id number] Abraham Mcclelland [id number] Anayeli Mcclelland Notes Date Note Type Note Provider Name and Address Organization Details Recorded Time 02/11/2024 text/html er f/u seen for left hip pain. pt requesting rx. Please send link to cell number.notes in chart reviewed er dc summary - negative w/u - pt primarily c/o L hip region spasm Rudy Aranda PA-C [address], [address] [facility] [place]/11/2024 14:40:05 03/02/2024 text/html Medicare Annual Wellness VisitReported bypatient.Diet and Nutrition:healthy diet; MMV and calcium and vitamin D, probiotic Fracture Risk:history of fractures Physical Activity:does not exercise on a regular basis;decreased physical activity;poor physical condition; does PT exercises Depression Risk:never feels sad, empty, or tearful; no loss of interest in activities; no significant changes in weight; no sleep disturbances or insomnia; no agitation; no loss of energy; no feelings of worthlessness or guilt; no thoughts of suicide Orientation:no disorientation to time; no disorientation to date; no disorientation to place Concentration and Memory:no decreased concentrating ability; no memory lapses or loss;forgetting words Speech/Motor difficulties:no speech difficulties; no difficulty expressing formulated concepts; no difficulty with fine manipulative tasks; no difficulty writing/copying; no slowed reaction time; does not knock things over when trying to pick them up Hearing:no loss of hearing Vision:no vision problems Activities of Daily Living:able to bathe with limited or no assistance; able to contol urination and bowels; able to dress with limited or no assistance; able to feed self with limited or no assistance; able to get out of chair or bed with limited or no assistance; able to groom with limited or no assistance; able to toilet with limited or no assistance Instrumental Activities of Daily Living:able to manage medications with limited or no assistance; able to manage money with limited or no assistance; able to use the phone with limited or no assistance;unable to do house work without assistance;unable to grocery shop without assistance;unable to manage medications without assistance;unable to to prepare meals without assistance Falls Risk Assessment:no frequent falls while walking; no fall in the past year; no fall since last visit; no dizziness/vertigo Home Safety:no unsafe shana hazzards; no unsafe stairs; no unsafe gas appliances; working smoke/CO detectors; wears protective head gear for biking/high velocity; use of seatbelts; practicing 'safer sex'; no vision or hearing loss while driving; no fire arms; has hand bars in the bathroom/shower; good lighting in the home Medicare Chelsie Mcclelland is a 78 year old F who presents to complete their Annual Wellness Visit. Visit Type: Annual How would you rate your health? Fair Have you been discharged from the hospital recently? NoHave you been to the emergency room or urgent care recently? Yes, s/p slip when patient was in the recliner, is currently completing physical therapyDo you have any significant previous hospital stays, injuries, or treatment? No Home Safety:Pt has a bedroom downstairs and as remodelled the bathroom for her needsIs the tub or shower floor slippery and do you need support? NoDo you need some support when you get in and out of the tub or from the toilet? Yes, pt has installed sturdy grab bars in the shower and installed a grab bar next to the toiletDo you have any small rugs or runners that slide or bunch up when you push them with your foot? NoAre there papers, books, towels, shoes, magazines, boxes, blankets, or other objects on the floor? No The patient does have a history of falls. Oral Health: every 6 monthsEye Health: every yearMotor Vehicle: Does not drive Screening Tools:Were there any ADL or IADL deficiencies not linked to physical limitations? NoDuring the past 12 months, have you experienced confusion or memory loss that is happening more often or is getting worse? No Advance Directive: HCP SMITA SU MD [address] [facility] [address], [place], [address], [facility] [place]/02/2024 11:12:08 08/11/2024 text/html AnemiaReported bypatient.Severity:N ormocytic 80Duration:intermitt ent Timing:sudden Context:previous Hemoglobin:(11.4) Associated Symptoms:no shortness of breath; no chest pain; no abdominal pain; no nausea; no vomiting; no melena; no blood in stool; no weakness; no fatigue; no palpitations; no excessive sweating; no nonfood cravings; no behavior problems; no symptoms of peripheral neuropathy; normal balance; no jaundice; no pallor; no weight loss;brittle, rigid fingernails;cold intolearnce Prior Tests:lower endoscopyNotes:Blood work from 08/29/23 it was noted that patient was anemic (stable). Pt does have intermittent bright red blood per rectum due to her history of radiation cystitis. Pt was to follow with hemotalogy however due to surgery and hip pain it was post-poned.EdemaRepo rted bypatient.Quality:le gs do not swell equally Severity:moderate Context:no prior history of deep vein thrombosis;prior history of edema Associated Symptoms:no shortness of breathNotes:Had a left THR in 2019, history of pelvic malignancy and chronic left LE edema. Pt mentions the lassix did not help. Pt was following with the lymphedema clinic and noted improvement. Patient was getting wraps and has a leg pump which she uses. Anayeli Mcclelland is a 79 year old F who presented to the clinic for follow-up on chronic conditions. Patient has no complaints at this time. Left hip: Pt was recently discharged from [facility] facility after undergoing removal left hip replacement and modified girdlestone procedure of the left hip. Pt is currently weaned off dilaudid (needed a long taper off the medication) on 04/20. Completed OT and PT. Pt pain is currently under good control. Will use tramadol as needed. Pt also taking Aleve 400mg and tylenol as needed. Patient walks in the home with a walker and when goes outside will use a wheelchair (only for long distances). Pt does have home health aid that comes 5 days a week for one hour. Deandra da silva, [facility] 08/25/2024 12:19:00 12/15/2024 text/html Anayeli Mcclelland is a 79 year old F who presented to the clinic for discussion on her tremors. Pt mentions there has been no worsening since last visit and does not feel as it is a problem. Will sometimes have tremor when lifting utensil to eat. Patient has an aid from M[facility] in the AM and late afternoon. Will help with dressing by putting on shoes and socks. Does do some cooking as well. In the evening will help patient get ready for bed. Uses tylenol daily to help with pain. When going out will use tramadol. Needs walker to ambulate. No falls since last visit. SMITA SU MD [address], [address] [facility] [place]/15/[place]24 14:36:36 01/15/2025 text/html Anxiety/Depressi onRe ported bypatient.Quality:mo od worse;increased anxiety Severity:denies suicidal ideations; able to maintain relationships; does not interfere with activities of daily living Duration:symptoms lasting over 2 weeks Onset/Timing:still present Context:bereavement Modifying Factors:social support Associated Symptoms:emotional lability;anxiety;dep ression;grieving Anayeli Mcclelland is a 79 year old F who was seen over TH today with her daughter. Pt recently passed and she is having a hard time with this. She is getting episodes of anxiety especially at night. Worried about what her future would like without her . SMITA SU MD [address], [address] [facility] [place]/15/2025 16:38:10 OBGyn Episode No OBEpisode recorded.
== END 2025-02-22 14:29 | disposition home or self-care (01) ==
LOC: HO.PMC 13:32
PROVIDERS: PCP Student in an Organized Health Care Education/Training Program; Referring Provider Student in an Organized Health Care Education/Training Program; Visit Provider Nurse Practitioner Family
DX: G89.4 Chronic pain syndrome (principal); M87.059 Idiopathic aseptic necrosis of unspecified femur; Z98.890 Other specified postprocedural states; Z96.642 Presence of left artificial hip joint
CPT/HCPCS: 99204

== ENCOUNTER → 2025-02-22 13:31 | Outpatient (BNVA) | payer MEDICARE, OTHER, SELFPAY | PROVIDERS: PCP Student in an Organized Health Care Education/Training Program; Referring Provider Student in an Organized Health Care Education/Training Program; Visit Provider Nurse Practitioner Family | DX: M87.059 Idiopathic aseptic necrosis of unspecified femur (principal); G89.4 Chronic pain syndrome; Z98.890 Other specified postprocedural states; Z96.642 Presence of left artificial hip joint | CPT/HCPCS: 99202 ==